=== PATIENT | male | born 1970 | race Caucasian/White ===

== ENCOUNTER 2020-04-21 17:47 | Inpatient (IN) ==
[2020-04-21] MEDS ORDERED: SODIUM CHLORIDE 0.9% 1000ML 2,000 ML IV ONE (17:52)
--- NOTE | 2020-04-21 17:54 | Emergency Department Note ---
Impression & Plan Cholecystitis, Transaminitis, CELESTE (acute kidney injury) ED Provider Note NAME: NICA [id number] LOUISA AGE: 49 SEX: M : 1970 ARRIVES VIA: Ambulance INFORMANT: Patient ED PROVIDER(S): Avelino Jackson DO CHIEF COMPLAINT: hyperkalemia and CELESTE HPI: Patient is a 49-year-old male who presents the ER for nausea. He has no significant past medical history with exception of diabetes and sciatica. He was being treated with steroids recently as well as NSAIDS. He stopped the steroids and NSAIDS as it did upset his stomach. He was nauseated. Because of this they obtain blood work today. Labs showed a potassium 6.2 and a creatinine in the twos which is new for him. He denies any headache or change in vision. No chest pain or shortness of breath. No vomiting diarrhea. Denies any dysuria urgency or frequency. No other exacerbating or remitting factors. ROS: See above HPI for pertinent positives & negatives. A total of 10 systems reviewed and were otherwise negative. PAST MEDICAL HISTORY:See Below PAST SURGICAL HISTORY:See Below FAMILY HISTORY:See Below SOCIAL HISTORY:See Below HOME MEDICATIONS:See Below ALLERGIES:See Below VITALS:See Below PHYSICAL EXAMINATION: GENERAL: Sitting up in bed, alert, well appearing, well nourished, no distress, non-toxic EYE EXAM: normal conjunctiva. OROPHARYNX: no exudate, no erythema, lips, buccal mucosa, and tongue normal and mucous membranes are moist NECK: supple, no nuchal rigidity, no adenopathy, non-tender LUNGS: Clear to auscultation. Normal chest wall mechanics HEART: no murmurs, S1 normal and S2 normal ABDOMEN: abdomen soft, non-tender, normo-active bowel sounds, no masses, no rebound or guarding. UPPER EXTREMITIES: upper extremities are grossly normal. LOWER EXTREMITIES: No pitting edema. NEURO EXAM: Normal sensorium, cranial nerves II-XII grossly intact, normal speech, no gross weakness of arms, no gross weakness of legs. MEDICAL DECISION MAKING: Patient is a 49-year-old male sent in from skilled nursing as he was having an upset stomach and he was found to have acute kidney injury. IV was established blood work was obtained. Labs show no significant leukocytosis or anemia. BMP with a creatinine at 2.5 up from baseline 1.2. LFTs show mild transaminitis. Bili was not elevated. Lipase was elevated at 1200. Covid was negative. CT abdomen pelvis shows cholecystitis. Patient was given Zofran as well as IV Zosyn. Discussed with the hospitalist and Kevyn from general surgery who recommended admission to general hospitalist. Patient was updated bedside. Triage Nursing notes reviewed. Limited review of prior medical records performed Vital Signs: reviewed and remarkable for HTN and tachy Differential diagnosis: Differential diagnoses includes but is not limited to gastritis, peptic ulcer disease, GERD, gallbladder disease, pancreatitis, small bowel obstruction, acute coronary syndrome, pericarditis, ischemic bowel, irritable bowel disease, irritable bowel syndrome, appendicitis, diverticulitis, malignancy, hernia, urinary tract infection, torsion, /ectopic (if female), perforation, trauma, infectious. ER treatment provided: See below Diagnostics interpreted by me: ECG: Sinus tachycardia rate of 116 Normal axis Septal Q waves QTC 439 Cardiac Monitoring: An order was placed for continuous cardiac monitoring. The monitor shows a rate of 108 with sinus rhythm. Laboratory studies: As stated above and show below. Imaging studies: CT abdomen pelvis shows cholecystitis Consultation(s): Discussed with Dr. Tariq Dill for admission Discussed with Kevyn from general surgery who recommended admission to internal medicine. Procedures: none Critical Care: None Past Med/Surg History Social History Feels Safe at Home: Yes Allergies Allergies Allergy/AdvReac Type Severity Reaction Status Date / Time No Known Allergies Allergy Verified 04/21/20 20:03 Home Meds Home Medications Medication Instructions Recorded Confirmed aspirin [Aspirin Low-Strength] 81 mg PO DAILY 04/21/20 04/21/20 carbamazepine 200 mg PO HS 04/21/20 04/21/20 diclofenac sodium 50 mg PO TID 04/21/20 04/21/20 glimepiride 1 mg PO DAILY 04/21/20 04/21/20 lisinopril 20 mg PO DAILY 04/21/20 04/21/20 metformin 1,000 mg PO BID 04/21/20 04/21/20 nortriptyline 25 mg PO HS 04/21/20 04/21/20 Results & Data (ED) Vital Signs Vital Signs - 24 hr 04/21/20 17:58 04/21/20 18:00 04/21/20 18:30 Temperature 36.7 C Temperature Source Oral Pulse Rate 118 H 113 H 108 H Pulse Rate from SpO2 Sensor 114 H 109 H Respiratory Rate 18 21 21 Respiratory Effort / Characteristics Respiratory Depth Normal Respiratory Pattern Blood Pressure 155/83 H 167/90 H 154/94 H Blood Pressure [Left Arm] Blood Pressure Mean 107 115 114 Blood Pressure Mean [Left Arm] Blood Pressure Position [Left Arm] Pulse Oximetry 99 96 98 Oxygen Delivery Method Room Air Room Air Room Air Sepsis Recent Fever Within 48 Hours No Sepsis New/Unexplained Change in Mental Status N/A Sepsis Action Taken by Nursing No Action Required 04/21/20 19:00 04/21/20 19:30 04/21/20 20:00 Temperature Temperature Source Pulse Rate 106 H 104 H 109 H Pulse Rate from SpO2 Sensor 108 H 105 H 110 H Respiratory Rate 23 20 18 Respiratory Effort / Characteristics Non-Labored Respiratory Depth Normal Respiratory Pattern Regular Blood Pressure 150/88 H 168/97 H Blood Pressure [Left Arm] 179/100 H Blood Pressure Mean 108 120 Blood Pressure Mean [Left Arm] 126 Blood Pressure Position [Left Arm] Lying Pulse Oximetry 99 100 99 Oxygen Delivery Method Room Air Sepsis Recent Fever Within 48 Hours Sepsis New/Unexplained Change in Mental Status Sepsis Action Taken by Nursing 04/21/20 22:00 Temperature Temperature Source Pulse Rate Pulse Rate from SpO2 Sensor Respiratory Rate 18 Respiratory Effort / Characteristics Non-Labored Respiratory Depth Normal Respiratory Pattern Regular Blood Pressure Blood Pressure [Left Arm] 156/93 H Blood Pressure Mean Blood Pressure Mean [Left Arm] 114 Blood Pressure Position [Left Arm] Lying Pulse Oximetry 98 Oxygen Delivery Method Room Air Sepsis Recent Fever Within 48 Hours Sepsis New/Unexplained Change in Mental Status Sepsis Action Taken by Nursing Laboratory Data Result diagrams: 04/21/20 18:10 04/21/20 18:10 Lab Results 04/21/20 04/21/20 04/21/20 Range/Units 18:10 18:10 19:30 WBC 8.87 (4.8-10.8) K/uL RBC 4.44 L (4.7-6.1) M/uL Hgb 12.9 L (14.0-18.0) g/dL Hct 38.4 L (42-52) % MCV 86.5 (80-100) fL MCH 29.1 (25-34) pg MCHC 33.6 (32-36) g/dL RDW Std Deviation 43.4 (36.4-46.3) fL RDW Coeff of Rani 13.5 (11.5-14.5) % Plt Count 347 (130-400) K/uL MPV 8.1 (7.4-10.4) fL Immature Gran % (Auto) 1.4 % Neut % (Auto) 75.5 % Lymph % (Auto) 10.6 % Butts % (Auto) 12.4 % Eos % (Auto) 0.0 % Baso % (Auto) 0.1 % Neut # (Auto) 6.70 H (1.4-6.5) K/uL Lymph # (Auto) 0.94 L (1.2-3.4) K/uL Butts # (Auto) 1.10 H (0.11-0.59) K/uL Eos # (Auto) 0.00 (0-0.5) K/uL Baso # (Auto) 0.01 (0-0.2) K/uL Immature Gran # (Auto) 0.12 H (0.00-0.02) K/uL Sodium 134 L (136-145) mmol/L Potassium 4.9 (3.5-5.1) mmol/L Chloride 103 (98-107) mmol/L Carbon Dioxide 23 (21-32) mmol/L Anion Gap 8.0 (3-11) BUN 22 H (7-18) mg/dl Creatinine 2.55 H (0.6-1.4) mg/dl Est Cr Clr Drug Dosing 34.1 ml/min Est GFR ( Amer) 32.7 Est GFR (Non-Af Amer) 28.2 BUN/Creatinine Ratio 8.4 L (10-20) Glucose 124 H (70-99) mg/dl Calcium 10.0 (8.5-10.1) mg/dl Total Bilirubin 0.5 (0.2-1) mg/dl AST 65 H (15-37) U/L ALT 148 H (12-78) U/L Alkaline Phosphatase 207 H (45-117) U/L Troponin I < 0.015 (0-0.045) ng/ml Total Protein 8.1 (6.4-8.2) gm/dl Albumin 4.2 (3.4-5.0) gm/dl Globulin 3.9 (2.5-4.0) gm/dl Albumin/Globulin Ratio 1.1 (0.9-2) Lipase 1163 H (73-393) U/L Specimen Hemolysis COVID-19 Eval Order Covid19 IDNow atMLAC SARS-CoV-2, RNA, NAAT (NEGATIVE) 04/21/20 Range/Units 19:30 WBC (4.8-10.8) K/uL RBC (4.7-6.1) M/uL Hgb (14.0-18.0) g/dL Hct (42-52) % MCV (80-100) fL MCH (25-34) pg MCHC (32-36) g/dL RDW Std Deviation (36.4-46.3) fL RDW Coeff of Rani (11.5-14.5) % Plt Count (130-400) K/uL MPV (7.4-10.4) fL Immature Gran % (Auto) % Neut % (Auto) % Lymph % (Auto) % Butts % (Auto) % Eos % (Auto) % Baso % (Auto) % Neut # (Auto) (1.4-6.5) K/uL Lymph # (Auto) (1.2-3.4) K/uL Butts # (Auto) (0.11-0.59) K/uL Eos # (Auto) (0-0.5) K/uL Baso # (Auto) (0-0.2) K/uL Immature Gran # (Auto) (0.00-0.02) K/uL Sodium (136-145) mmol/L Potassium (3.5-5.1) mmol/L Chloride (98-107) mmol/L Carbon Dioxide (21-32) mmol/L Anion Gap (3-11) BUN (7-18) mg/dl Creatinine (0.6-1.4) mg/dl Est Cr Clr Drug Dosing ml/min Est GFR ( Amer) Est GFR (Non-Af Amer) BUN/Creatinine Ratio (10-20) Glucose (70-99) mg/dl Calcium (8.5-10.1) mg/dl Total Bilirubin (0.2-1) mg/dl AST (15-37) U/L ALT (12-78) U/L Alkaline Phosphatase (45-117) U/L Troponin I (0-0.045) ng/ml Total Protein (6.4-8.2) gm/dl Albumin (3.4-5.0) gm/dl Globulin (2.5-4.0) gm/dl Albumin/Globulin Ratio (0.9-2) Lipase (73-393) U/L Specimen Hemolysis COVID-19 Eval Order SARS-CoV-2, RNA, NAAT NEGATIVE (NEGATIVE) Administered Medications Discontinued Medications Sodium Chloride (Nss 1000ml) 2,000 mls @ 999 mls/hr IV .Q2H1M ONE Stop: 04/21/20 19:52 Last Infusion: 04/21/20 20:01 Dose: 0 mls/hr Documented by: [id number] Admin: 04/21/20 18:16 Dose: 999 mls/hr Documented by: [id number] Sodium Chloride (Nss 1000ml) 1,000 mls @ 999 mls/hr IV .Q1H1M ONE Stop: 04/21/20 19:56 Last Infusion: 04/21/20 22:26 Dose: 0 mls/hr Documented by: [id number] Infusion: 04/21/20 21:12 Dose: 0 mls/hr Documented by: [id number] Admin: 04/21/20 20:04 Dose: 999 mls/hr Documented by: [id number] Piperacillin Sod/Tazobactam Sod (Zosyn) 4.5 gm in 120 mls @ 240 mls/hr IV NOW ONE Stop: 04/21/20 21:58 Last Admin: 04/21/20 21:58 Dose: 240 mls/hr Documented by: [id number] Ondansetron HCl (Ondansetron Inj 2 Mg/Ml 2 Ml Vial) 4 mg IV NOW STA Stop: 04/21/20 18:57 Last Admin: 04/21/20 20:07 Dose: Not Given Documented by: [id number] Discharge Plan Visit Data Chief Complaint: Abnormal Labs/Diagnostic Testing Stated Complaint: ABNORMAL LABS ED Provider: Avelino Jackson Discharge Problem: Cholecystitis, Transaminitis, CELESTE (acute kidney injury) Forms Stand Alone Forms: [facility] [employer] Prescriptions Prescriptions: No Action lisinopril 20 mg Tablet 20 mg PO DAILY RF: 0 aspirin [Aspirin Low-Strength] 81 mg Tablet,Delayed Release (Dr/Ec) 81 mg PO DAILY RF: 0 glimepiride 1 mg Tablet 1 mg PO DAILY RF: 0 nortriptyline 25 mg Capsule 25 mg PO HS RF: 0 carbamazepine 200 mg Tablet 200 mg PO HS RF: 0 metformin 1,000 mg Tablet 1,000 mg PO BID RF: 0 diclofenac sodium 50 mg Tablet,Delayed Release (Dr/Ec) 50 mg PO TID RF: 0 Referrals Referrals: Polo TRAVIS [Primary Care Provider] -
[2020-04-21 18:22] LABS: Basophils # (auto) 0.01 K/uL (0-0.2); Basophils % (auto) 0.1 %; Hematocrit (blood only) 38.4 % (42-52); Hemoglobin 12.9 g/dL (14.0-18.0); Immature Granulocytes # (auto) 0.12 K/uL (0.00-0.02); Immature Granulocytes % (auto) 1.4 %; Lymphocytes # (auto) 0.94 K/uL (1.2-3.4); Lymphocytes % (auto) 10.6 %; Mean Corpuscular Hemoglobin 29.1 pg (25-34); Mean Corpuscular Hgb Conc 33.6 g/dL (32-36); Mean Corpuscular Volume 86.5 fL (80-100); Mean Platelet Volume 8.1 fL (7.4-10.4); Monocytes % (auto) 12.4 %; Neutrophils % (auto) 75.5 %; Platelet Count 347 K/uL (130-400); RDW Coefficient of Variation 13.5 % (11.5-14.5); RDW Standard Deviation 43.4 fL (36.4-46.3); Red Blood Count 4.44 M/uL (4.7-6.1); White Blood Count 8.87 K/uL (4.8-10.8)
--- NOTE | 2020-04-21 18:50 | XRay Report ---
SINGLE VIEW CHEST CLINICAL HISTORY: Atypical chest pain. FINDINGS: An AP, portable, upright chest radiograph is obtained. No prior studies are available for c omparison at the time of dictation. The cardiomediastinal silhouette is unremarkable. The lungs and pleural spaces are clear. No pneumothorax is seen. The bony thorax is grossly intact. IMPRESSION: No active disease in the chest. ACT 112: Negative or not required by law. Electronically signed by: Mark Milton M.D. 04/21/2020 6:49 PM
[2020-04-21 18:54] LABS: Alanine Aminotransferase 148 U/L (12-78); Albumin Globulin Ratio 1.1 (0.9-2); Albumin Level 4.2 gm/dl (3.4-5.0); Alkaline Phosphatase 207 U/L (45-117); Aspartate Aminotransferase 65 U/L (15-37); BUN Creatinine Ratio 8.4 (10-20); Bilirubin,Total 0.5 mg/dl (0.2-1); Blood Urea Nitrogen 22 mg/dl (7-18); Carbon Dioxide 23 mmol/L (21-32); Chloride 103 mmol/L (98-107); Creatinine Clr Calc Pharmacy 34.1 ml/min; Est GFR (African American) 32.7; Est GFR (Non-African American) 28.2; Globulin 3.9 gm/dl (2.5-4.0); Glucose 124 mg/dl (70-99); Lipase 1163 U/L (73-393); Potassium 4.9 mmol/L (3.5-5.1); Sodium 134 mmol/L (136-145); Total Protein 8.1 gm/dl (6.4-8.2); Troponin I < 0.015 ng/ml (0-0.045)
[2020-04-21] MEDS ORDERED: SODIUM CHLORIDE 0.9% 1000ML 1,000 ML IV ONE (18:56)
[2020-04-21] MEDS ORDERED: ONDANSETRON INJ 2 MG/ML 2 ML VIAL IV STA (18:56)
--- NOTE | 2020-04-21 20:40 | CT Scan Report ---
CT SCAN OF THE ABDOMEN AND PELVIS WITHOUT IV CONTRAST CLINICAL HISTORY: Generalized abdominal pain. COMPARISON STUDY: No priors. TECHNIQUE: CT scan of the abdomen and pelvis is performed from the lung bases to the proximal femora. Images are reviewed in the axial, sagittal, and coronal planes. IV contrast was not administered for this examination. Note that the examination was performed in significantly suboptimal fashion withou t oral and IV contrast. A dose lowering technique was utilized adhering to the principles of ALARA. CT DOSE: 798.25 mGy.cm FINDINGS: Lung bases: The heart is normal in size and without pericardial effusion. The lung bases are clear. T here is a tiny hiatal hernia. Liver: The unenhanced liver is enlarged, measuring 20.6 cm in length. The liver is otherwise normal i n contour and attenuation. There is no intrahepatic biliary ductal dilatation. Gallbladder: The gallbladder is partially decompressed. The gallbladder wall appears thickened and th ere is pericholecystic inflammation. Spleen: Normal in size and attenuation. Pancreas: The unenhanced pancreas is grossly unremarkable. Adrenal glands: Unremarkable. Kidneys: The unenhanced kidneys are normal in size and without hydronephrosis. There are no renal lisa culi identified. There is no evidence of contour deforming renal mass lesion. Abdominal vasculature: The abdominal aorta is normal in course and caliber. Bowel: There is no bowel obstruction. The appendix is well-visualized and normal. Peritoneum: There is no intraperitoneal free air or abdominal ascites. There is a small fat-containin g umbilical hernia. Lymphadenopathy: None. Pelvic viscera: The bladder is distended but otherwise normal in appearance. The prostate and seminal vesicles are normal as visualized. Skeletal structures: No lytic or blastic lesions are seen. IMPRESSION: 1. Abnormal appearing gallbladder with findings concerning for acute cholecystitis. Correlate with cl inical and laboratory findings. Consider right upper quadrant ultrasound for further assessment. 2. Hepatomegaly. 3. Additional findings as above. ACT 112: Negative or not required by law. Electronically signed by: Mark Milton M.D. 04/21/2020 8:39 PM
[2020-04-21] MEDS ORDERED: PIPERACILLIN/TAZOBACTAM 4.5 GM/120 ML BAG IV ONE (21:29)
[2020-04-21] MEDS ORDERED: PIPERACILL/TAZOBAC CONSULT ACTIVE PRN ×2 (21:29→23:31)
[2020-04-21] MEDS ORDERED: HYDROmorphone INJ 0.5 MG/0.5 ML SYR IV PRN (21:59)
--- NOTE | 2020-04-21 22:22 | Surgery Consultation ---
Date of Consultation April 21, 2020 Assessment & Plan (1) Cholecystitis: Patient is being admitted to the hospital on the medical service. I discussed the case with them and the following interventions are in place: Serial labs will be followed The hospital service is planning on obtaining an MRCP Recommend keeping the patient n.p.o. and hydrating with IV fluids secondary to his pancreatitis We will await the results of his MRCP. Be preferable to allow his lipase is normalized and have improvement of his renal function prior to entertaining any surgical intervention. Provide analgesics as needed Provide antiemetics as needed Continue antibiotics. He has received Zosyn in the emergency department Patient appears to have acute kidney injury I suspect this is likely due to his NSAID use. We will avoid nephrotoxins and hydrate him with IV fluids again follow serial labs Dr. Miller-patient seen in his roomawake alert appears to be normal. Very good urine output No complaint of abdominal pain. No tenderness in the right upper quadrant. Patient CT scan does show thickened contracted gallbladder-lipase is elevated as well as his LFTs with a normal total bilirubin There could be an element of gallstone pancreatitis-we will monitor his progress and likely proceed with laparoscopic cholecystectomy in the next 24 to 48 hours if he stabilizes. History of Present Illness Reason for Consultation: Cholecystitis History of Present Illness This is a 49-year-old male who is currently incarcerated who presented to [facility] emergency department secondary to nausea. The patient has a history of sciatica along with diabetes and LIU and was recently treated with NSAIDs along with steroids due to his sciatica. He has had approximately 5 days worth of nausea so he had labs checked which were abnormal prompting his presentation to the emergency department for further evaluation. Patient denies any abdominal pain but did report nausea with occasional dry heaves. He denies any fevers, shakes, or chills. He does not report any recent weight loss. He denies any change in his bowel habits. I did question him about his urine and he notes that his urine is discolored and has the color of soda. He notes that for his sciatica he was been taking Celebrex in the past and has also Rickett recently taken diclofenac as well as Voltaren. In the emergency department the patient did have labs were CBC revealed his white blood cell count and platelet count were within normal range. His hemoglobin and hematocrit were 12.9 and 38.4. Chemistry profile showed his sodium was 134. Potassium was within normal range. His BUN and creatinine were elevated at 22 and 2.5. LFTs showed that his bilirubin was within the normal r mark anthony. His AST and ALT were elevated at 65 and 148. Alkaline phosphatase is elevated at 207. In addition his lipase was elevated at 1163. A Covid test was performed and was noted to be negative. Chest x-ray showed no evidence of pneumonia or CHF. CT scan of the abdomen showed that patient is gallbladder had pericholecystic inflammation with a thickened gallbladder wall concerning for cholecystitis. Patient notes when he is feeling well he is fairly active and he is able to walk without any chest pain or shortness of breath. He is a non-smoker. At the time of my interview he was resting comfortably in bed with no pain and in no distress. Allergies Allergy/AdvReac Type Severity Reaction Status Date / Time No Known Allergies Allergy Verified 04/21/20 20:03 Home Medications Medication Instructions Recorded Confirmed Type aspirin [Aspirin Low-Strength] 81 mg PO DAILY 04/21/20 04/21/20 History carbamazepine 200 mg PO HS 04/21/20 04/21/20 History diclofenac sodium 50 mg PO TID 04/21/20 04/21/20 History glimepiride 1 mg PO DAILY 04/21/20 04/21/20 History lisinopril 20 mg PO DAILY 04/21/20 04/21/20 History metformin 1,000 mg PO BID 04/21/20 04/21/20 History nortriptyline 25 mg PO HS 04/21/20 04/21/20 History Patient History Social History Smoking Status: Never smoker Hx Alcohol Use: Yes Alcohol type: beer Hx Substance Use: No Preferred Language: Belgian Communication Ability: Effective Signal Wirer Required: No Beliefs That Will Affect Care: None Current Living Situation: Other Current Living Situation Comment: [facility] Facility Other Information That Helps Us Care for You: No Feels Safe at Home: Yes Safety Concerns: Feels Safe At This Time Assistive Devices: Glasses Review of Systems Constitutional: no fever, no chills and no weight loss Eyes: no diplopia Ear, Nose, Mouth, Throat: no ear pain Respiratory: no cough Cardiovascular: no chest pain Gastrointestinal: + nausea and + vomiting (Intermittent dry heaves); no abdominal pain Genitourinary: no dysuria Musculoskeletal: + back pain (Related to his sciatica) Integumentary: no rash Neurologic: no localized weakness Physical Exam Constitutional: well developed and well nourished; no acute distress Eyes: no conjunctival abnormality ENMT: Ears: no hearing impairment Neck: trachea midline Respiratory: normal respiratory effort, lungs clear to auscultation Cardiovascular: Rate/Rhythm: regular rate and regular rhythm Gastrointestinal (Abdomen): Abdomen is soft and nondistended. Bowel sounds are present. There is no rebound tenderness or guarding. There is no pain with palpation. Skin: no rashes, warm and dry Neurologic: moves all extremities Psychiatric: A+Ox3, euthymic affect Results & Data ([facility]) Vital Signs (Past 12 Hours) Vital Signs Temp Pulse Resp BP BP Pulse Ox 04/21/20 22:00 18 156/93 H 98 04/21/20 20:00 109 H 18 179/100 H 99 04/21/20 19:30 104 H 20 168/97 H 100 04/21/20 19:00 106 H 23 150/88 H 99 04/21/20 18:30 108 H 21 154/94 H 98 04/21/20 18:00 113 H 21 167/90 H 96 04/21/20 17:58 36.7 C 118 H 18 155/83 H 99 PG Care Time/CCT Total # of Minutes Spent Total Time Spent with Patient: Total time spent is greater than 50% in coordination of care (as documented) at patient's floor/unit and/or counseling patient: Coding Level of Care Code 82220 Inpt Consult Level 5 Diagnoses Cholecystitis K81.9
[2020-04-21] MEDS ORDERED: CARBOHYDRATES FOR HYPOGLYCEMIA PO PRN (23:31)
[2020-04-21] MEDS ORDERED: DEXTROSE 50% 50 ML SYRINGE IV PRN (23:31)
[2020-04-21] MEDS ORDERED: GLUCOSE 10 TABS/TUBE PO PRN (23:31)
[2020-04-21] MEDS ORDERED: GLUCOSE 40% GEL 15 GM TUBE PO PRN (23:31)
[2020-04-21] MEDS ORDERED: GLUCAGON FOR INJ 1 MG VIAL SQ PRN (23:31)
[2020-04-21] MEDS ORDERED: PHARMACY GLYCEMIC MGMT CONSULT PRN (23:42)
[2020-04-21] MEDS: LACTATED RINGER'S 1,000 ML IV SCH (23:42)
[2020-04-22] MEDS: INSULIN ASPART 100 UNITS/ML 3 ML PEN SC SCH ×4 (00:56→17:40)
[2020-04-22] MEDS: PIPERACILLIN/TAZOBACTAM 3.375 GM in DEXTROSE 5% 100 ML IV SCH ×3 (01:30→17:07)
--- NOTE | 2020-04-22 04:27 | History & Physical Report ---
Date of Service April 22, 2020 Patient was seen and examined on April 21, 2020 Assessment & Plan (1) Cholecystitis: Acute cholecystitis/pancreatitis/transaminitis- Presumptive gallstone pancreatitis NPO except essential medications LR at 150 mils per hour Zosyn 3.375 g IV every 8 hours Zofran 4 mg IV every 6 hours as needed Famotidine 20 mg IV every 12 hours Order MRCP Seen by surgery in the ED. If MRCP abnormal, will need ERCP. Present on Admission?: Yes (2) Pancreatitis: See above Follow serial lipase Present on Admission?: Yes (3) Transaminitis: See above follow serial chemistry panels Present on Admission?: Yes (4) Renal insufficiency: Renal insufficiency- Unknown baseline with creatinine on the patient 2.55. Hold lisinopril IV fluids as noted above Repeat laboratories in a.m. Present on Admission?: Yes (5) Diabetes mellitus: Hold glimepiride Hold Metformin, and do not resume unless GFR is improved Placed on Accu-Cheks before meals and at bedtime/every 6 hours with NovoLog coverage per scale Present on Admission?: Yes Admission and Anticipated Discharge Date Admission Date: April 21, 2020 History of Present Illness Chief Complaint: The patient presents to the emergency department from [facility] with complaint of nausea over the past few days, following treatment with steroids and NSAIDs for sciatica Primary Care Provider: [facility] The patient is a 49-year-old male with a past medical history including diabetes mellitus, hypertension, and sciatica who presents with nausea for the past few days, following treatment with steroids and NSAIDs for sciatica. Allergies Allergy/AdvReac Type Severity Reaction Status Date / Time No Known Allergies Allergy Verified 04/21/20 20:03 Home Medications Medication Instructions Recorded Confirmed Type aspirin [Aspirin Low-Strength] 81 mg PO DAILY 04/21/20 04/21/20 History carbamazepine 200 mg PO HS 04/21/20 04/21/20 History diclofenac sodium 50 mg PO TID 04/21/20 04/21/20 History glimepiride 1 mg PO DAILY 04/21/20 04/21/20 History lisinopril 20 mg PO DAILY 04/21/20 04/21/20 History metformin 1,000 mg PO BID 04/21/20 04/21/20 History nortriptyline 25 mg PO HS 04/21/20 04/21/20 History Past Med/Surg History Social History Smoking Status: Never smoker Hx Alcohol Use: Yes Alcohol type: beer Hx Substance Use: No Preferred Language: Georgian Communication Ability: Effective Die Maker Required: No Beliefs That Will Affect Care: None Current Living Situation: Other Current Living Situation Comment: [facility] Other Information That Helps Us Care for You: No Feels Safe at Home: Yes Safety Concerns: Feels Safe At This Time Assistive Devices: Glasses Review of Systems Review of Systems: The patient denies chest pain, palpitations, shortness of breath, dyspnea on exertion, cough, lower extremity swelling, sore throat, fevers, chills, sweats, vomiting, diarrhea , constipation, abdominal pain, pelvic pain, blood in urine or stool, dysuria, urinary frequency or urgency, lightheadedness, dizziness, headache, memory loss, loss of consciousness, rash, abnormal bruising or bleeding, imbalance, focal or generalized weakness, numbness or tingling in arms or legs, generalized arthralgias or myalgias, back or neck pain, or night sweats. The review of systems is otherwise negative other than for that already noted above, and at least 10 systems have been reviewed. Physical Exam Physical Exam: The patient is awake, alert and oriented 3, well developed and well nourished, normocephalic and atraumatic, lying in bed and in no acute distress. HEENT--PERRL, EOMI, mucous membranes and oropharynx dry. Neck--supple. No JVD. No bruits. Thyroid normal, trachea midline, no adenopathy. Heart--normal S1 and S2. No murmurs, rubs or gallops. Lungs--clear bilaterally, no respiratory distress, no accessory muscle use. Abdomen--normal bowel sounds and soft. Nontender. Nondistended, no hernias or masses, no organomegaly. Extremities--no cyanosis or clubbing. No edema. Dermatologic--normal skin turgor, normal color, no abnormal lymph nodes, no rash. Neurologic--cranial nerves II through XII grossly intact. Rheumatologic--normal range of motion. Psychiatric--normal affect. Results & Data Results & Data ([facility]) Vital Signs (Past 12 Hours) Vital Signs Temp Pulse Pulse Resp BP BP Pulse Ox 04/22/20 01:29 95 H 116/86 04/22/20 00:20 105 H 142/89 H 04/21/20 23:45 98.6 F 104 H 16 152/92 H 97 04/21/20 22:30 108 H 17 141/86 H 95 04/21/20 22:05 109 H 23 156/93 H 97 04/21/20 22:04 98 04/21/20 22:00 18 156/93 H 98 04/21/20 20:00 109 H 18 179/100 H 99 04/21/20 19:30 104 H 20 168/97 H 100 04/21/20 19:00 106 H 23 150/88 H 99 04/21/20 18:30 108 H 21 154/94 H 98 04/21/20 18:00 113 H 21 167/90 H 96 04/21/20 17:58 98.1 F 118 H 18 155/83 H 99 Laboratory Results Laboratory Results WBC 8.87 K/uL (4.8-10.8) 04/21/20 18:10 RBC 4.44 M/uL (4.7-6.1) L 04/21/20 18:10 Hgb 12.9 g/dL (14.0-18.0) L 04/21/20 18:10 Hct 38.4 % (42-52) L 04/21/20 18:10 MCV 86.5 fL (80-100) 04/21/20 18:10 MCH 29.1 pg (25-34) 04/21/20 18:10 MCHC 33.6 g/dL (32-36) 04/21/20 18:10 RDW Std Deviation 43.4 fL (36.4-46.3) 04/21/20 18:10 RDW Coeff of Rani 13.5 % (11.5-14.5) 04/21/20 18:10 Plt Count 347 K/uL (130-400) 04/21/20 18:10 MPV 8.1 fL (7.4-10.4) 04/21/20 18:10 Immature Gran % (Auto) 1.4 % 04/21/20 18:10 Neut % (Auto) 75.5 % 04/21/20 18:10 Lymph % (Auto) 10.6 % 04/21/20 18:10 Conway % (Auto) 12.4 % 04/21/20 18:10 Eos % (Auto) 0.0 % 04/21/20 18:10 Baso % (Auto) 0.1 % 04/21/20 18:10 Neut # (Auto) 6.70 K/uL (1.4-6.5) H 04/21/20 18:10 Lymph # (Auto) 0.94 K/uL (1.2-3.4) L 04/21/20 18:10 Conway # (Auto) 1.10 K/uL (0.11-0.59) H 04/21/20 18:10 Eos # (Auto) 0.00 K/uL (0-0.5) 04/21/20 18:10 Baso # (Auto) 0.01 K/uL (0-0.2) 04/21/20 18:10 Immature Gran # (Auto) 0.12 K/uL (0.00-0.02) H 04/21/20 18:10 Sodium 134 mmol/L (136-145) L 04/21/20 18:10 Potassium 4.9 mmol/L (3.5-5.1) 04/21/20 18:10 Chloride 103 mmol/L (98-107) 04/21/20 18:10 Carbon Dioxide 23 mmol/L (21-32) 04/21/20 18:10 Anion Gap 8.0 (3-11) 04/21/20 18:10 BUN 22 mg/dl (7-18) H 04/21/20 18:10 Creatinine 2.55 mg/dl (0.6-1.4) H 04/21/20 18:10 Est Cr Clr Drug Dosing 34.1 ml/min 04/21/20 18:10 Est GFR ( Amer) 32.7 04/21/20 18:10 Est GFR (Non-Af Amer) 28.2 04/21/20 18:10 BUN/Creatinine Ratio 8.4 (10-20) L 04/21/20 18:10 Glucose 124 mg/dl (70-99) H 04/21/20 18:10 POC Glucose 105 mg/dl (70-99) H 04/21/20 23:35 Calcium 10.0 mg/dl (8.5-10.1) 04/21/20 18:10 Total Bilirubin 0.5 mg/dl (0.2-1) 04/21/20 18:10 AST 65 U/L (15-37) H 04/21/20 18:10 ALT 148 U/L (12-78) H 04/21/20 18:10 Alkaline Phosphatase 207 U/L (45-117) H 04/21/20 18:10 Troponin I < 0.015 ng/ml (0-0.045) 04/21/20 18:10 Total Protein 8.1 gm/dl (6.4-8.2) 04/21/20 18:10 Albumin 4.2 gm/dl (3.4-5.0) 04/21/20 18:10 Globulin 3.9 gm/dl (2.5-4.0) 04/21/20 18:10 Albumin/Globulin Ratio 1.1 (0.9-2) 04/21/20 18:10 Lipase 1163 U/L (73-393) H 04/21/20 18:10 Specimen Hemolysis 04/21/20 18:10 COVID-19 Eval Order Covid19 [facility] 04/21/20 19:30 SARS-CoV-2, RNA, NAAT NEGATIVE (NEGATIVE) 04/21/20 19:30 Diagnostic Findings [facility], [phone] XRay Report Patient: NICA JASSO [id number] Date: 04/21/20MR#: [id number]: [address] [place] [address] DRAcct ID:[id number]: Date: 1970[facility] Zip: [place], [place] [address]Jlb: 49Location: EDSex: MRoom/Bed:Att Phy:Diagnosis: ABNORMAL LABSPri Phy: SCI BennerService Date: 04/21/20Fa Phy:Interpreting Phy: Mark Milton MDAdmit Phy: Ordering Phy: Avelino Jackson DO cc: ~ SINGLE VIEW CHEST CLINICAL HISTORY: Atypical chest pain. FINDINGS: An AP, portable, upright chest radiograph is obtained. No prior studies are available for comparison at the time of dictation. The cardiomediastinal silhouette is unremarkable. The lungs and pleural spaces are clear. No pneumothorax is seen. The bony thorax is grossly intact. IMPRESSION: No active disease in the chest. ACT 112: Negative or not required by law. Electronically signed by: Mark Milton M.D. 04/21/2020 6:49 PM Dictated: 04/21/201848Transcribed: 04/21/201848 [facility], [phone] CT Scan Report Patient: NICA JASSO [id number] Date: 04/21/20MR#: [id number]: [facility] DRAcct ID:[id number]: Date: 1970[facility] Zip: [place] [id number]: 49Location: EDSex: MRoom/Bed:Att Phy:Diagnosis: ABNORMAL LABSPri Phy: SCI BennerService Date: 04/21/20Fa Phy:Interpreting Phy: Mark Milton MDAdmit Phy: Ordering Phy: Avelino Jackson, cc: ~ CT SCAN OF THE ABDOMEN AND PELVIS WITHOUT IV CONTRAST CLINICAL HISTORY: Generalized abdominal pain. COMPARISON STUDY: No priors. TECHNIQUE: CT scan of the abdomen and pelvis is performed from the lung bases to the proximal femora. Images are reviewed in the axial, sagittal, and coronal planes. IV contrast was not administered for this examination. Note that the examination was performed in significantly suboptimal fashion without oral and IV contrast. A dose lowering technique was utilized adhering to the principles of ALARA. CT DOSE: 798.25 mGy.cm FINDINGS: Lung bases: The heart is normal in size and without pericardial effusion. The lung bases are clear. There is a tiny hiatal hernia. Liver: The unenhanced liver is enlarged, measuring 20.6 cm in length. The liver is otherwise normal in contour and attenuation. There is no intrahepatic biliary ductal dilatation. Gallbladder: The gallbladder is partially decompressed. The gallbladder wall appears thickened and there is pericholecystic inflammation. Spleen: Normal in size and attenuation. Pancreas: The unenhanced pancreas is grossly unremarkable. Adrenal glands: Unremarkable. Kidneys: The unenhanced kidneys are normal in size and without hydronephrosis. There are no renal calculi identified. There is no evidence of contour deforming renal mass lesion. Abdominal vasculature: The abdominal aorta is normal in course and caliber. Bowel: There is no bowel obstruction. The appendix is well-visualized and normal. Peritoneum: There is no intraperitoneal free air or abdominal ascites. There is a small fat-containing umbilical hernia. Lymphadenopathy: None. Pelvic viscera: The bladder is distended but otherwise normal in appearance. The prostate and seminal vesicles are normal as visualized. Skeletal structures: No lytic or blastic lesions are seen. IMPRESSION: 1. Abnormal appearing gallbladder with findings concerning for acute cholecystitis. Correlate with clinical and laboratory findings. Consider right upper quadrant ultrasound for further assessment. 2. Hepatomegaly. 3. Additional findings as above. ACT 112: Negative or not required by law. Electronically signed by: Mark Milton M.D. 04/21/2020 8:39 PM Dictated: 04/21/202032Transcribed: 04/21/202032 Code Status & VTE Plan Code Status Full code VTE Prophylaxis Plan VTE Prophylaxis will be ordered: Yes PG Care Time/CCT Total # of Minutes Spent Total Time Spent with Patient: Total time spent is greater than 50% in coordination of care (as documented) at patient's floor/unit and/or counseling patient: Coding Level of Care Code 45114 Initial Inpt Care Lvl 3 Diagnoses Cholecystitis K81.9 Pancreatitis K85.90 Transaminitis R74.01 Renal insufficiency N28.9 Diabetes mellitus E11.9
[2020-04-22] MEDS: FAMOTIDINE 20 MG in SYRINGE 3 ML IV SCH ×2 (06:03→20:22)
[2020-04-22 06:30] LABS: Hematocrit (blood only) 34.7 % (42-52); Hemoglobin 11.7 g/dL (14.0-18.0); Immature Granulocytes # (auto) 0.13 K/uL (0.00-0.02); Immature Granulocytes % (auto) 1.5 %; Lymphocytes # (auto) 1.12 K/uL (1.2-3.4); Lymphocytes % (auto) 12.8 %; Mean Corpuscular Hemoglobin 29.3 pg (25-34); Mean Corpuscular Hgb Conc 33.7 g/dL (32-36); Monocytes # (auto) 1.23 K/uL (0.11-0.59); Monocytes % (auto) 14.1 %; Neutrophils # (auto) 6.25 K/uL (1.4-6.5); Neutrophils % (auto) 71.6 %; Platelet Count 306 K/uL (130-400); RDW Coefficient of Variation 13.3 % (11.5-14.5); RDW Standard Deviation 42.6 fL (36.4-46.3); Red Blood Count 3.99 M/uL (4.7-6.1); White Blood Count 8.73 K/uL (4.8-10.8)
[2020-04-22 07:03] LABS: BUN Creatinine Ratio 8.2 (10-20); Calcium 9.5 mg/dl (8.5-10.1); Creatinine Clr Calc Pharmacy 37.4 ml/min; Est GFR (African American) 37.2; Est GFR (Non-African American) 32.1; Magnesium 2.1 mg/dl (1.8-2.4); Potassium 4.9 mmol/L (3.5-5.1)
[2020-04-22 08:46] LABS: Albumin Level 3.6 gm/dl (3.4-5.0); Bilirubin Direct 0.1 mg/dl (0-0.2); Bilirubin,Total 0.5 mg/dl (0.2-1); Total Protein 7.1 gm/dl (6.4-8.2)
[2020-04-22] MEDS ORDERED: lisinopril 20 MG TAB PO SCH (09:00)
--- NOTE | 2020-04-22 09:05 | Pharmacy Report ---
Pharmacy Glycemic Short Note 2 - Date of Service April 22, 2020 - Glycemic Short BSG Results (Last 24 hours): 04/21/20 04/21/20 04/22/20 18:10 23:35 05:54 Glucose 124 H POC Glucose 105 H 119 H 04/22/20 06:08 Glucose 124 H POC Glucose OUTPATIENT ANTIDIABETIC REGIMEN: * metformin 1 gm PO BID * Amaryl 1 mg daily ASSESSMENT: * Patient admitted with gallstones and currently NPO. T2DM on two oral medications with unknown control. HbA1C ordered. * Start Novolog weight-based stress 2. * Lantus scale for this evening if BSGs trend upwards. PLAN FOR INPATIENT GLYCEMIC CONTROL: * Hold outpatient oral diabetes medications * Basal insulin * Lantus 0-15 units SQ HS * Lantus 0 units if BSG < 160 mg/dL * Lantus 10 units if BSG 160-200 mg/dL * Lantus 15 units if BSG > 200 mg/dL * Bolus insulin * NovoLog per scale ACHS or Q6hrs while NPO * Goal Range: Low 110 mg/dL - High 140 mg/dL * Correction Factor: 30 mg/dL/unit * Nutritional / Prandial insulin per carb ratio of 1 unit per 9 grams CHO consumed PLAN FOR DISCHARGE: * TBD
--- NOTE | 2020-04-22 09:06 | Hospitalist Progress Note ---
Date of Service April 22, 2020 Assessment & Plan (1) Cholecystitis: * Acute cholecystitis/pancreatitis/transaminitis- concerning for gallstone pancreatitis * CT with abnormal appearing GB. * MRCP normal without GB thickening seen on CT * General surgery consulted -- prefer to wait 24hours to normalize lipase but ok with clear diet for today * Clear liquid diet ordered * NPO after midnight * Continue LR @ 150cc/hr * Continue Zosyn * Lipase 1163 on admission, repeat 944 -- no pain, just nausea this AM * Antiemetics, pain control * Continue famotidine 20mg IV BID * AVOID NSAIDs -- had been taking meloxicam, diclofenac, and ibuprofen prior to admission * Triglycerides slightly elevated at 178 -- will discuss w patient prior to d/c about starting lowering agent * LFTs remain elevated however are trending down (normal Tbili) -- AST 47, ALT 125, alk phos 163 * Labs in AM (2) Pancreatitis: * See above * Lipase trending down (3) Transaminitis: * See above * follow serial chemistry panels as above (4) Renal insufficiency: * Renal insufficiency- Unknown baseline with creatinine on the patient 2.55. * Holding lisinopril * IV fluids as noted above * Patient had been taking meloxicam, diclofenac, and ibuprofen prior to admission * Cr still elevated but improved to 2.29 * Avoid nephrotoxic medications, renally dose medications when able * BMP in AM (5) Diabetes mellitus: * Hold glimepiride * Hold Metformin, and do not resume unless GFR is improved * Placed on Accu-Cheks before meals and at bedtime/every 6 hours with NovoLog coverage per scale DVT Prophylaxis SCDs Chemoproph held for OR in AM Dispo: NPO after midnight for poncho with Dr. Miller Admission and Anticipated Discharge Date Admission Date: April 21, 2020 Subjective Patient evaluated this afternoon. No pain. Some nausea. Controlled currently. Some pain to lower left pain typically of MSK origin as reproducible on palpation. Hx sciatica. Will order lidocaine patch. Discussed MRCP without stone/need for urgent intervention and that general surg darell hopeful to wait 24-48 hours prior to intervention. Denies drinking. Discussed NSAID use. Hx sciatica and had been using diclofenac after previously taking meloxicam but was never told to stop the meloxicam. Then was utilizing ibuprofen in between those as needed for increased discomfort. Discussed abstaining from NSAIDs at this time. Has not moved bowels in 3 days. Passing gas. Open to suppository. Questions/concerns addressed. No fever, chills, chest pain, abdominal pain, dysuria at this time. Review of Systems Review of Systems: All systems reviewed & are unremarkable except as noted in HPI & below Physical Exam Constitutional: WD/WN, vitals as above + obese, cooperative and comfortable; no acute distress two gaurds at bedside, shackles to bed Eyes: + anicteric sclerae and PERRL ENMT: Ears: no hearing impairment Neck: normal visual inspection and trachea midline Respiratory: normal respiratory effort, lungs clear to auscultation Cardiovascular: RRR, no murmur, no edema Gastrointestinal (Abdomen): normal bowel sounds, soft, nontender, no hepatosplenomegaly Musculoskeletal: no cyanosis or clubbing, extremities motor strength 5/5 tenderness to palpation L low back, reproducible on palpation Skin: no rashes, warm and dry Neurologic: PERRL, EOMI, accommodation nl, no face palsy, no dysarthria Psychiatric: Orientation: alert and oriented x 3 Results & Data Results & Data ([facility]) Vital Signs (Past 12 Hours) Vital Signs Temp Pulse Pulse Resp BP BP Pulse Ox 04/22/20 07:51 36.8 C 81 17 144/84 H 98 04/22/20 06:13 96 H 130/84 04/22/20 05:31 36.9 C 99 H 16 161/93 H 99 04/22/20 01:29 95 H 116/86 04/22/20 00:20 105 H 142/89 H 04/21/20 23:45 37.0 C 104 H 16 152/92 H 97 04/21/20 22:30 108 H 17 141/86 H 95 04/21/20 22:05 109 H 23 156/93 H 97 04/21/20 22:04 98 04/21/20 22:00 18 156/93 H 98 Laboratory Results 04/22/20 04/22/20 04/22/20 Range/Units 06:08 06:08 06:08 WBC (4.8-10.8) K/uL RBC (4.7-6.1) M/uL Hgb (14.0-18.0) g/dL Hct (42-52) % MCV (80-100) fL MCH (25-34) pg MCHC (32-36) g/dL RDW Std Deviation (36.4-46.3) fL RDW Coeff of Rani (11.5-14.5) % Plt Count (130-400) K/uL MPV (7.4-10.4) fL Immature Gran % (Auto) % Neut % (Auto) % Lymph % (Auto) % [place] % (Auto) % Eos % (Auto) % Baso % (Auto) % Neut # (Auto) (1.4-6.5) K/uL Lymph # (Auto) (1.2-3.4) K/uL [place] # (Auto) (0.11-0.59) K/uL Eos # (Auto) (0-0.5) K/uL Baso # (Auto) (0-0.2) K/uL Immature Gran # (Auto) (0.00-0.02) K/uL Sodium 139 (136-145) mmol/L Potassium 4.9 (3.5-5.1) mmol/L Chloride 108 H (98-107) mmol/L Carbon Dioxide 24 (21-32) mmol/L Anion Gap 7.0 (3-11) BUN 19 H (7-18) mg/dl Creatinine 2.29 H (0.6-1.4) mg/dl Est Cr Clr Drug Dosing 37.4 ml/min Est GFR ( Amer) 37.2 Est GFR (Non-Af Amer) 32.1 BUN/Creatinine Ratio 8.2 L (10-20) Glucose 124 H (70-99) mg/dl POC Glucose (70-99) mg/dl Calcium 9.5 (8.5-10.1) mg/dl Ionized Calcium 1.20 (1.12-1.32) mmol/L Magnesium 2.1 (1.8-2.4) mg/dl Total Bilirubin 0.5 (0.2-1) mg/dl Direct Bilirubin 0.1 (0-0.2) mg/dl AST 47 H (15-37) U/L ALT 125 H (12-78) U/L Alkaline Phosphatase 163 H (45-117) U/L Troponin I (0-0.045) ng/ml Total Protein 7.1 (6.4-8.2) gm/dl Albumin 3.6 (3.4-5.0) gm/dl Globulin (2.5-4.0) gm/dl Albumin/Globulin Ratio (0.9-2) Triglycerides 178 H (0-150) mg/dl Cholesterol 191 (0-200) mg/dl LDL Cholesterol, Calc 109 mg/dl VLDL Cholesterol, Calc 36 mg/dl HDL Cholesterol 46 mg/dl Cholesterol/HDL Ratio 4 Lipase 944 H (73-393) U/L Specimen Hemolysis COVID-19 Eval Order SARS-CoV-2, RNA, NAAT (NEGATIVE) 04/22/20 04/22/20 04/21/20 Range/Units 06:08 05:54 23:35 WBC 8.73 (4.8-10.8) K/uL RBC 3.99 L (4.7-6.1) M/uL Hgb 11.7 L (14.0-18.0) g/dL Hct 34.7 L (42-52) % MCV 87.0 (80-100) fL MCH 29.3 (25-34) pg MCHC 33.7 (32-36) g/dL RDW Std Deviation 42.6 (36.4-46.3) fL RDW Coeff of Rani 13.3 (11.5-14.5) % Plt Count 306 (130-400) K/uL MPV 8.0 (7.4-10.4) fL Immature Gran % (Auto) 1.5 % Neut % (Auto) 71.6 % Lymph % (Auto) 12.8 % [place] % (Auto) 14.1 % Eos % (Auto) 0.0 % Baso % (Auto) 0.0 % Neut # (Auto) 6.25 (1.4-6.5) K/uL Lymph # (Auto) 1.12 L (1.2-3.4) K/uL [place] # (Auto) 1.23 H (0.11-0.59) K/uL Eos # (Auto) 0.00 (0-0.5) K/uL Baso # (Auto) 0.00 (0-0.2) K/uL Immature Gran # (Auto) 0.13 H (0.00-0.02) K/uL Sodium (136-145) mmol/L Potassium (3.5-5.1) mmol/L Chloride (98-107) mmol/L Carbon Dioxide (21-32) mmol/L Anion Gap (3-11) BUN (7-18) mg/dl Creatinine (0.6-1.4) mg/dl Est Cr Clr Drug Dosing ml/min Est GFR ( Amer) Est GFR (Non-Af Amer) BUN/Creatinine Ratio (10-20) Glucose (70-99) mg/dl POC Glucose 119 H 105 H (70-99) mg/dl Calcium (8.5-10.1) mg/dl Ionized Calcium (1.12-1.32) mmol/L Magnesium (1.8-2.4) mg/dl Total Bilirubin (0.2-1) mg/dl Direct Bilirubin (0-0.2) mg/dl AST (15-37) U/L ALT (12-78) U/L Alkaline Phosphatase (45-117) U/L Troponin I (0-0.045) ng/ml Total Protein (6.4-8.2) gm/dl Albumin (3.4-5.0) gm/dl Globulin (2.5-4.0) gm/dl Albumin/Globulin Ratio (0.9-2) Triglycerides (0-150) mg/dl Cholesterol (0-200) mg/dl LDL Cholesterol, Calc mg/dl VLDL Cholesterol, Calc mg/dl HDL Cholesterol mg/dl Cholesterol/HDL Ratio Lipase (73-393) U/L Specimen Hemolysis COVID-19 Eval Order SARS-CoV-2, RNA, NAAT (NEGATIVE) 04/21/20 04/21/20 04/21/20 Range/Units 19:30 19:30 18:10 WBC (4.8-10.8) K/uL RBC (4.7-6.1) M/uL Hgb (14.0-18.0) g/dL Hct (42-52) % MCV (80-100) fL MCH (25-34) pg MCHC (32-36) g/dL RDW Std Deviation (36.4-46.3) fL RDW Coeff of Rani (11.5-14.5) % Plt Count (130-400) K/uL MPV (7.4-10.4) fL Immature Gran % (Auto) % Neut % (Auto) % Lymph % (Auto) % [place] % (Auto) % Eos % (Auto) % Baso % (Auto) % Neut # (Auto) (1.4-6.5) K/uL Lymph # (Auto) (1.2-3.4) K/uL [place] # (Auto) (0.11-0.59) K/uL Eos # (Auto) (0-0.5) K/uL Baso # (Auto) (0-0.2) K/uL Immature Gran # (Auto) (0.00-0.02) K/uL Sodium 134 L (136-145) mmol/L Potassium 4.9 (3.5-5.1) mmol/L Chloride 103 (98-107) mmol/L Carbon Dioxide 23 (21-32) mmol/L Anion Gap 8.0 (3-11) BUN 22 H (7-18) mg/dl Creatinine 2.55 H (0.6-1.4) mg/dl Est Cr Clr Drug Dosing 34.1 ml/min Est GFR ( Amer) 32.7 Est GFR (Non-Af Amer) 28.2 BUN/Creatinine Ratio 8.4 L (10-20) Glucose 124 H (70-99) mg/dl POC Glucose (70-99) mg/dl Calcium 10.0 (8.5-10.1) mg/dl Ionized Calcium (1.12-1.32) mmol/L Magnesium (1.8-2.4) mg/dl Total Bilirubin 0.5 (0.2-1) mg/dl Direct Bilirubin (0-0.2) mg/dl AST 65 H (15-37) U/L ALT 148 H (12-78) U/L Alkaline Phosphatase 207 H (45-117) U/L Troponin I < 0.015 (0-0.045) ng/ml Total Protein 8.1 (6.4-8.2) gm/dl Albumin 4.2 (3.4-5.0) gm/dl Globulin 3.9 (2.5-4.0) gm/dl Albumin/Globulin Ratio 1.1 (0.9-2) Triglycerides (0-150) mg/dl Cholesterol (0-200) mg/dl LDL Cholesterol, Calc mg/dl VLDL Cholesterol, Calc mg/dl HDL Cholesterol mg/dl Cholesterol/HDL Ratio Lipase 1163 H (73-393) U/L Specimen Hemolysis COVID-19 Eval Order Covid19 [facility] SARS-CoV-2, RNA, NAAT NEGATIVE (NEGATIVE) 04/21/20 Range/Units 18:10 WBC 8.87 (4.8-10.8) K/uL RBC 4.44 L (4.7-6.1) M/uL Hgb 12.9 L (14.0-18.0) g/dL Hct 38.4 L (42-52) % MCV 86.5 (80-100) fL MCH 29.1 (25-34) pg MCHC 33.6 (32-36) g/dL RDW Std Deviation 43.4 (36.4-46.3) fL RDW Coeff of Rani 13.5 (11.5-14.5) % Plt Count 347 (130-400) K/uL MPV 8.1 (7.4-10.4) fL Immature Gran % (Auto) 1.4 % Neut % (Auto) 75.5 % Lymph % (Auto) 10.6 % [place] % (Auto) 12.4 % Eos % (Auto) 0.0 % Baso % (Auto) 0.1 % Neut # (Auto) 6.70 H (1.4-6.5) K/uL Lymph # (Auto) 0.94 L (1.2-3.4) K/uL [place] # (Auto) 1.10 H (0.11-0.59) K/uL Eos # (Auto) 0.00 (0-0.5) K/uL Baso # (Auto) 0.01 (0-0.2) K/uL Immature Gran # (Auto) 0.12 H (0.00-0.02) K/uL Sodium (136-145) mmol/L Potassium (3.5-5.1) mmol/L Chloride (98-107) mmol/L Carbon Dioxide (21-32) mmol/L Anion Gap (3-11) BUN (7-18) mg/dl Creatinine (0.6-1.4) mg/dl Est Cr Clr Drug Dosing ml/min Est GFR ( Amer) Est GFR (Non-Af Amer) BUN/Creatinine Ratio (10-20) Glucose (70-99) mg/dl POC Glucose (70-99) mg/dl Calcium (8.5-10.1) mg/dl Ionized Calcium (1.12-1.32) mmol/L Magnesium (1.8-2.4) mg/dl Total Bilirubin (0.2-1) mg/dl Direct Bilirubin (0-0.2) mg/dl AST (15-37) U/L ALT (12-78) U/L Alkaline Phosphatase (45-117) U/L Troponin I (0-0.045) ng/ml Total Protein (6.4-8.2) gm/dl Albumin (3.4-5.0) gm/dl Globulin (2.5-4.0) gm/dl Albumin/Globulin Ratio (0.9-2) Triglycerides (0-150) mg/dl Cholesterol (0-200) mg/dl LDL Cholesterol, Calc mg/dl VLDL Cholesterol, Calc mg/dl HDL Cholesterol mg/dl Cholesterol/HDL Ratio Lipase (73-393) U/L Specimen Hemolysis COVID-19 Eval Order SARS-CoV-2, RNA, NAAT (NEGATIVE) Diagnostic Findings CT SCAN OF THE ABDOMEN AND PELVIS WITHOUT IV CONTRAST FINDINGS: Lung bases: The heart is normal in size and without pericardial effusion. The lung bases are clear. There is a tiny hiatal hernia. Liver: The unenhanced liver is enlarged, measuring 20.6 cm in length. The liver is otherwise normal in contour and attenuation. There is no intrahepatic biliary ductal dilatation. Gallbladder: The gallbladder is partially decompressed. The gallbladder wall appears thickened and there is pericholecystic inflammation. Spleen: Normal in size and attenuation. Pancreas: The unenhanced pancreas is grossly unremarkable. Adrenal glands: Unremarkable. Kidneys: The unenhanced kidneys are normal in size and without hydronephrosis. There are no renal calculi identified. There is no evidence of contour deforming renal mass lesion. Abdominal vasculature: The abdominal aorta is normal in course and caliber. Bowel: There is no bowel obstruction. The appendix is well-visualized and normal. Peritoneum: There is no intraperitoneal free air or abdominal ascites. There is a small fat-containing umbilical hernia. Lymphadenopathy: None. Pelvic viscera: The bladder is distended but otherwise normal in appearance. The prostate and seminal vesicles are normal as visualized. Skeletal structures: No lytic or blastic lesions are seen. IMPRESSION: 1. Abnormal appearing gallbladder with findings concerning for acute cholecystit is. Correlate with clinical and laboratory findings. Consider right upper quadrant ultrasound for further assessment. 2. Hepatomegaly. 3. Additional findings as above. MRCP IMPRESSION: 1. Normal MRCP. 2. Mild gallbladder wall thickening and pericholecystic inflammatory change suggested by CT is not apparent on MRI. PG Care Time/CCT Total # of Minutes Spent Total Time Spent with Patient: Total time spent is greater than 50% in coordination of care (as documented) at patient's floor/unit and/or counseling patient: Coding Level of Care Code 04281 Subseq Hosp Care Lvl 2 Diagnoses Cholecystitis K81.9 Pancreatitis K85.90 Transaminitis R74.01 Renal insufficiency N28.9 Diabetes mellitus E11.9
--- NOTE | 2020-04-22 09:25 | Magnetic Resonance Report ---
MRCP CLINICAL HISTORY: Acute cholecystitis. Pancreatitis. COMPARISON STUDY: Abdominal CT dated 04/21/2020. TECHNIQUE: Abdominal MRCP is performed utilizing various T2-weighted sequences in the axial and coron al planes. IV contrast was not administered for this examination. 3-D reformats are created and asses sed. FINDINGS: The gallbladder is partially distended. Wall thickening and surrounding inflammation suggested by CT are not well-visualized by MRI. No gallstones are seen. There is no intra or extrahepatic biliary edmar sariah dilatation. The common bile duct measures up to 4 mm in diameter. There are no filling defects to suggest choledocholithiasis. The pancreatic duct is normal in caliber. The unenhanced liver, spleen, pancreas, adrenal glands, and kidneys are grossly normal. There is no a bdominal ascites. No bowel obstruction is seen. The abdominal aorta is normal in caliber. No pleural effusion is identified. IMPRESSION: 1. Normal MRCP. 2. Mild gallbladder wall thickening and pericholecystic inflammatory change suggested by CT is not ap parent on MRI. Dictated: 04/22/2020 8:58 AM Transcribed: 04/22/2020 9:12 AM Sabrina [id number] [email or web address] Electronically signed by: Mark Milton M.D. 04/22/2020 9:23 AM
--- NOTE | 2020-04-22 10:44 | Electrocardiogram Report ---
Test Reason : Blood Pressure : / mmHG Vent. Rate : 116 BPM Atrial Rate : 116 BPM P-R Int : 192 ms QRS Dur : 092 ms QT Int : 316 ms P-R-T Axes : 026 026 027 degrees QTc Int : 439 ms Sinus tachycardia Septal infarct , age undetermined Abnormal ECG No previous ECGs available Confirmed by Jeremy Rivero ([id number]) on 04/22/2020 10:44:03 AM Referred By: [facility]o [facility] Confirmed By:Jeremy Rivero
[2020-04-22] MEDS: LACTATED RINGER'S 1,000 ML IV SCH ×3 (11:03→23:01)
[2020-04-22] MEDS ORDERED: bisacodyL 10 MG SUPP PR STA (12:58)
[2020-04-22] MEDS: LIDOCAINE 5% 1 PATCH TD SCH (14:23)
--- NOTE | 2020-04-22 16:44 | Anesthesiology Consultation ---
Date of Service April 22, 2020 Assessment & Plan (1) Encounter for pre-operative examination: Chart Review Chart Review: Acceptable Risk for Surgery and Patient NOT seen in Pre Admission Testing covid neg 04/21/20. Consults Requested none History Surgery Operation Date: 04/23/20 11:35 Proposed Procedures p Laparoscopic Cholecystectomy - Raad Miller MD, FACS Height/Weight Height: 5 ft 4 in Weight: 82.6 kg Allergies Allergy/AdvReac Type Severity Reaction Status Date / Time No Known Allergies Allergy Verified 04/21/20 20:03 Medications Home Medications Medication Instructions Recorded Confirmed Last Taken aspirin [Aspirin Low-Strength] 81 mg PO DAILY 04/21/20 04/21/20 Unknown carbamazepine 200 mg PO HS 04/21/20 04/21/20 04/19/20 19:00 diclofenac sodium 50 mg PO TID 04/21/20 04/21/20 Unknown glimepiride 1 mg PO DAILY 04/21/20 04/21/20 Unknown lisinopril 20 mg PO DAILY 04/21/20 04/21/20 Unknown metformin 1,000 mg PO BID 04/21/20 04/21/20 Unknown nortriptyline 25 mg PO HS 04/21/20 04/21/20 04/19/20 19:00 Active Medications Generic Name Dose Route Start Last Admin Trade Name Mikeq PRN Reason Stop Dose Admin Piperacillin Sod/Tazobactam 115 mls @ 28.75 mls/hr 04/22/20 02:00 04/22/20 13:34 Sod 3.375 gm/ Dextrose IV 05/02/20 01:59 Infused Q8H FAHAD Infusion Protocol Lactated Ringer's 1,000 mls @ 150 mls/hr 04/21/20 23:31 04/22/20 11:03 Lr IV 05/21/20 23:30 150 mls/hr .[id number] FAHAD Administration Famotidine 20 mg/ Syringe 5 mls @ 2.5 mls/min 04/22/20 05:00 04/22/20 06:03 IV 05/22/20 04:59 2.5 mls/min BID FAHAD Administration Insulin Aspart 0 units 04/22/20 00:00 04/22/20 12:03 Insulin Aspart 100 Units/Ml 3 Ml Pen SC 05/22/20 00:00 Not Given Q6 FAHAD Lidocaine 1 patch 04/22/20 13:00 04/22/20 14:23 Lidocaine 5% 1 Patch TD 05/22/20 12:59 1 patch QAM FAHAD Administration Past Medical History Medical History (Updated 04/22/20 @ 16:45 by Aj Chaudhari MD) CELESTE (acute kidney injury) Diabetes mellitus Pancreatitis Renal insufficiency Transaminitis Exercise / Class Metabolic Activity II 4-5 Yardwork/Stairs/Walk up hill Social History Smoking Status: Never smoker Hx Alcohol Use: Yes Alcohol type: beer Hx Substance Use: No Physical Exam Vital Signs Last Vital Signs Temp 36.7 C 04/22/20 14:59 Pulse 81 04/22/20 14:59 Resp 17 04/22/20 14:59 BP 143/85 H 04/22/20 14:59 Pulse Ox 98 04/22/20 14:59 Testing Laboratory Results 04/22/20 06:08 04/22/20 06:08 04/22/20 04/22/20 11:59 05:54 POC Glucose 123 H 119 H Chest X-Ray Date: 04/21/20 DICTATED BY: Jeremy Rivero MD Test Reason : Blood Pressure : / mmHG Vent. Rate : 116 BPM Atrial Rate : 116 BPM P-R Int : 192 ms QRS Dur : 092 ms QT Int : 316 ms P-R-T Axes : 026 026 027 degrees QTc Int : 439 ms Sinus tachycardia Septal infarct , age undetermined Abnormal ECG No previous ECGs available Confirmed by Jeremy Rivero ([id number]) on 04/22/2020 10:44:03 AM
[2020-04-22] MEDS: carBAMazepine 200 MG TABLET PO SCH (20:23)
[2020-04-22] MEDS: INSULIN GLARGINE SOLOSTAR 100 UNITS/ML 3 ML PEN SC SCH (20:54)
[2020-04-22] MEDS ORDERED: NORTRIPTYLINE HCL 25 MG CAP PO SCH (21:00)
[2020-04-23] MEDS: INSULIN ASPART 100 UNITS/ML 3 ML PEN SC SCH ×5 (00:46→22:26)
[2020-04-23] MEDS: PIPERACILLIN/TAZOBACTAM 3.375 GM in DEXTROSE 5% 100 ML IV SCH ×3 (03:15→17:36)
--- NOTE | 2020-04-23 05:48 | History & Physical Bridge Note ---
Date of Service April 23, 2020 History & Physical Bridge Note I have examined the patient, reviewed the History & Physical and in the interval since the performance of the History & Physical I have noted the following changes of clinical significance: no changes noted
[2020-04-23] MEDS: LACTATED RINGER'S 1,000 ML IV SCH ×3 (05:49→14:51)
[2020-04-23 07:01] LABS: Basophils # (auto) 0.01 K/uL (0-0.2); Basophils % (auto) 0.1 %; Hematocrit (blood only) 32.8 % (42-52); Hemoglobin 11.2 g/dL (14.0-18.0); Immature Granulocytes # (auto) 0.09 K/uL (0.00-0.02); Lymphocytes # (auto) 1.06 K/uL (1.2-3.4); Mean Corpuscular Hemoglobin 29.6 pg (25-34); Mean Corpuscular Hgb Conc 34.1 g/dL (32-36); Mean Corpuscular Volume 86.5 fL (80-100); Monocytes # (auto) 1.06 K/uL (0.11-0.59); Neutrophils # (auto) 6.61 K/uL (1.4-6.5); Neutrophils % (auto) 74.9 %; Platelet Count 290 K/uL (130-400); RDW Coefficient of Variation 13.2 % (11.5-14.5); RDW Standard Deviation 42.3 fL (36.4-46.3); Red Blood Count 3.79 M/uL (4.7-6.1); White Blood Count 8.83 K/uL (4.8-10.8)
[2020-04-23 07:40] LABS: BUN Creatinine Ratio 5.9 (10-20); Calcium 9.1 mg/dl (8.5-10.1); Est GFR (African American) 42.8; Est GFR (Non-African American) 36.9; Magnesium 1.9 mg/dl (1.8-2.4); Potassium 4.2 mmol/L (3.5-5.1)
[2020-04-23] MEDS: LIDOCAINE 5% 1 PATCH TD SCH (07:59)
[2020-04-23] MEDS: FAMOTIDINE 20 MG in SYRINGE 3 ML IV SCH ×2 (08:00→21:15)
--- NOTE | 2020-04-23 08:15 | Hospitalist Progress Note ---
Date of Service April 23, 2020 Assessment & Plan (1) Cholecystitis: * Acute cholecystitis/pancreatitis/transaminitis- concerning for gallstone pancreatitis * CT with abnormal appearing GB. * MRCP normal without GB thickening seen on CT * General surgery consulted -- plans for OR today * Clear liquid diet ordered yesterday but currently NPO for OR this morning with Dr. Miller * Continue Zosyn (day 2 of therapy) * Lipase 1163 on admission, repeat 944 and down to 756 * Continue IVF with LR , but increased to 200cc/hr and will repeat in AM * LFTs improving but still elevated -- continue to trend on AM labs * Triglycerides elevated to 178 -- discussed w patient and plans for repeat with diet changes vs medication initiation but would hold off acutely given elevated LFTs at this time * Pain control, Antiemetics * Continue Pepcid IV BID * AVOID NSAIDs -- had been taking meloxicam, diclofenac, and ibuprofen prior to admission * NPO * Labs in AM (2) Pancreatitis: * See above * Lipase trending down, currently 756 (3) Transaminitis: * See above * Repeat LFTs with Tbili 0.6, direct 0.2, AST 28, ALT 90H, Alk phos 143H * Continue to trend (4) Renal insufficiency: * Renal insufficiency- Unknown baseline with creatinine on the patient 2.55. * Holding lisinopril * IV fluids as noted above but increased to 200cc/hr * Patient had been taking meloxicam, diclofenac, and ibuprofen prior to admission * Cr still elevated but improved to 2.04 * Avoid nephrotoxic medications, renally dose medications when able * BMP in AM (5) Diabetes mellitus: * Hold glimepiride * Hold Metformin, and do not resume unless GFR is improved * Placed on Accu-Cheks before meals and at bedtime/every 6 hours with NovoLog coverage per scale * A1c pending * BSGs 87-123 during admission DVT Prophylaxis SCDs Chemoproph held for OR Dispo: NPO for OR later this morning with Dr. Miller Admission and Anticipated Discharge Date Admission Date: April 21, 2020 Subjective Patient evaluated this morning. Doing well. Pain controlled, none reported. Low back pain resolved -- believed from laying in bed in wrong position. No nausea. Lipase improved but still elevated and discussed increasing his IVF. Plans for OR this morning for lab poncho with Dr. Miller. Has not seen him yet this morning. No fever, chills, chest pain, shortness of breath, abdoiminal pain, dysuria at this time. Questions/concerns addressed. Discussed elevated triglycerides -- he has hx of HLD and elevated cholesterol and was on medication in the past but made dietary changes and was taken off with normal cholesterol on panel. Discussed in future repeating labs if able to make dietary changes and reduce on his own. Review of Systems Review of Systems: All systems reviewed & are unremarkable except as noted in HPI & below Physical Exam Constitutional: WD/WN, vitals as above + obese, cooperative and comfortable; no acute distress Eyes: + anicteric sclerae and PERRL ENMT: Ears: no hearing impairment Neck: normal visual inspection and trachea midline Respiratory: normal respiratory effort, lungs clear to auscultation Cardiovascular: RRR, no murmur, no edema Gastrointestinal (Abdomen): normal bowel sounds, soft, nontender, no hepatosplenomegaly Musculoskeletal: no cyanosis or clubbing, extremities motor strength 5/5 Skin: no rashes, warm and dry Neurologic: PERRL, EOMI, accommodation nl, no face palsy, no dysarthria Psychiatric: Orientation: alert and oriented x 3 Results & Data Results & Data ([facility]) Vital Signs (Past 12 Hours) Vital Signs Temp Pulse Resp BP Pulse Ox 04/23/20 07:12 36.5 C 86 16 127/78 94 04/23/20 00:05 36.7 C 92 H 18 151/87 H 97 Laboratory Results 04/23/20 04/23/20 04/23/20 Range/Units 06:38 06:38 06:38 WBC 8.83 (4.8-10.8) K/uL RBC 3.79 L (4.7-6.1) M/uL Hgb 11.2 L (14.0-18.0) g/dL Hct 32.8 L (42-52) % MCV 86.5 (80-100) fL MCH 29.6 (25-34) pg MCHC 34.1 (32-36) g/dL RDW Std Deviation 42.3 (36.4-46.3) fL RDW Coeff of Rani 13.2 (11.5-14.5) % Plt Count 290 (130-400) K/uL MPV 8.0 (7.4-10.4) fL Immature Gran % (Auto) 1.0 % Neut % (Auto) 74.9 % Lymph % (Auto) 12.0 % [place] % (Auto) 12.0 % Eos % (Auto) 0.0 % Baso % (Auto) 0.1 % Neut # (Auto) 6.61 H (1.4-6.5) K/uL Lymph # (Auto) 1.06 L (1.2-3.4) K/uL [place] # (Auto) 1.06 H (0.11-0.59) K/uL Eos # (Auto) 0.00 (0-0.5) K/uL Baso # (Auto) 0.01 (0-0.2) K/uL Immature Gran # (Auto) 0.09 H (0.00-0.02) K/uL Sodium 140 (136-145) mmol/L Potassium 4.2 (3.5-5.1) mmol/L Chloride 107 (98-107) mmol/L Carbon Dioxide 28 (21-32) mmol/L Anion Gap 5.0 (3-11) BUN 12 (7-18) mg/dl Creatinine 2.04 H (0.6-1.4) mg/dl Est Cr Clr Drug Dosing 42.0 ml/min Est GFR ( Amer) 42.8 Est GFR (Non-Af Amer) 36.9 BUN/Creatinine Ratio 5.9 L (10-20) Glucose 110 H (70-99) mg/dl POC Glucose (70-99) mg/dl Estimat Average Glucose Pending Hemoglobin A1c Pending Calcium 9.1 (8.5-10.1) mg/dl Magnesium 1.9 (1.8-2.4) mg/dl Total Bilirubin (0.2-1) mg/dl Direct Bilirubin (0-0.2) mg/dl AST (15-37) U/L ALT (12-78) U/L Alkaline Phosphatase (45-117) U/L Total Protein (6.4-8.2) gm/dl Albumin (3.4-5.0) gm/dl Lipase 756 H (73-393) U/L 04/23/20 04/23/20 04/22/20 Range/Units 05:47 00:03 20:44 WBC (4.8-10.8) K/uL RBC (4.7-6.1) M/uL Hgb (14.0-18.0) g/dL Hct (42-52) % MCV (80-100) fL MCH (25-34) pg MCHC (32-36) g/dL RDW Std Deviation (36.4-46.3) fL RDW Coeff of Rani (11.5-14.5) % Plt Count (130-400) K/uL MPV (7.4-10.4) fL Immature Gran % (Auto) % Neut % (Auto) % Lymph % (Auto) % [place] % (Auto) % Eos % (Auto) % Baso % (Auto) % Neut # (Auto) (1.4-6.5) K/uL Lymph # (Auto) (1.2-3.4) K/uL [place] # (Auto) (0.11-0.59) K/uL Eos # (Auto) (0-0.5) K/uL Baso # (Auto) (0-0.2) K/uL Immature Gran # (Auto) (0.00-0.02) K/uL Sodium (136-145) mmol/L Potassium (3.5-5.1) mmol/L Chloride (98-107) mmol/L Carbon Dioxide (21-32) mmol/L Anion Gap (3-11) BUN (7-18) mg/dl Creatinine (0.6-1.4) mg/dl Est Cr Clr Drug Dosing ml/min Est GFR ( Amer) Est GFR (Non-Af Amer) BUN/Creatinine Ratio (10-20) Glucose (70-99) mg/dl POC Glucose 117 H 87 102 H (70-99) mg/dl Estimat Average Glucose Hemoglobin A1c Calcium (8.5-10.1) mg/dl Magnesium (1.8-2.4) mg/dl Total Bilirubin (0.2-1) mg/dl Direct Bilirubin (0-0.2) mg/dl AST (15-37) U/L ALT (12-78) U/L Alkaline Phosphatase (45-117) U/L Total Protein (6.4-8.2) gm/dl Albumin (3.4-5.0) gm/dl Lipase (73-393) U/L 04/22/20 04/22/20 04/22/20 Range/Units 16:58 11:59 06:08 WBC (4.8-10.8) K/uL RBC (4.7-6.1) M/uL Hgb (14.0-18.0) g/dL Hct (42-52) % MCV (80-100) fL MCH (25-34) pg MCHC (32-36) g/dL RDW Std Deviation (36.4-46.3) fL RDW Coeff of Rani (11.5-14.5) % Plt Count (130-400) K/uL MPV (7.4-10.4) fL Immature Gran % (Auto) % Neut % (Auto) % Lymph % (Auto) % [place] % (Auto) % Eos % (Auto) % Baso % (Auto) % Neut # (Auto) (1.4-6.5) K/uL Lymph # (Auto) (1.2-3.4) K/uL [place] # (Auto) (0.11-0.59) K/uL Eos # (Auto) (0-0.5) K/uL Baso # (Auto) (0-0.2) K/uL Immature Gran # (Auto) (0.00-0.02) K/uL Sodium (136-145) mmol/L Potassium (3.5-5.1) mmol/L Chloride (98-107) mmol/L Carbon Dioxide (21-32) mmol/L Anion Gap (3-11) BUN (7-18) mg/dl Creatinine (0.6-1.4) mg/dl Est Cr Clr Drug Dosing ml/min Est GFR ( Amer) Est GFR (Non-Af Amer) BUN/Creatinine Ratio (10-20) Glucose (70-99) mg/dl POC Glucose 100 H 123 H (70-99) mg/dl Estimat Average Glucose Hemoglobin A1c Calcium (8.5-10.1) mg/dl Magnesium (1.8-2.4) mg/dl Total Bilirubin 0.5 (0.2-1) mg/dl Direct Bilirubin 0.1 (0-0.2) mg/dl AST 47 H (15-37) U/L ALT 125 H (12-78) U/L Alkaline Phosphatase 163 H (45-117) U/L Total Protein 7.1 (6.4-8.2) gm/dl Albumin 3.6 (3.4-5.0) gm/dl Lipase (73-393) U/L PG Care Time/CCT Total # of Minutes Spent Total Time Spent with Patient: Total time spent is greater than 50% in coor dination of care (as documented) at patient's floor/unit and/or counseling patient: Coding Level of Care Code 42386 Subseq Hosp Care Lvl 2 Diagnoses Cholecystitis K81.9 Pancreatitis K85.90 Transaminitis R74.01 Renal insufficiency N28.9 Diabetes mellitus E11.9
[2020-04-23 09:13] LABS: Albumin Level 3.4 gm/dl (3.4-5.0); Bilirubin,Total 0.6 mg/dl (0.2-1); Total Protein 6.5 gm/dl (6.4-8.2)
[2020-04-23 09:33] LABS: Bilirubin Direct 0.2 mg/dl (0-0.2)
[2020-04-23] MEDS ORDERED: PROPOFOL IV EMULSION 10 MG/ML 20 ML VIAL IV ONE (11:07)
[2020-04-23] MEDS ORDERED: LIDOCAINE HCL 2% 2 ML VIAL/AMP(20MG/ML) INFIL ONE (11:07)
[2020-04-23] MEDS ORDERED: ONDANSETRON INJ 2 MG/ML 2 ML VIAL ONE (11:07)
[2020-04-23] MEDS ORDERED: ROCURONIUM BROMIDE 10 MG/ML 5 ML VIAL IV ONE (11:07)
[2020-04-23] MEDS ORDERED: MIDAZOLAM HCL 1 MG/ML 2ML VIAL ONE (11:08)
[2020-04-23] MEDS ORDERED: fentaNYL citrate 100 MCG/2 ML VIAL ONE ×2 (11:08→13:11)
[2020-04-23] MEDS ORDERED: BUPIVACAINE 0.5 % 5 MG/1 ML MPF 30ML VIAL ONE (11:38)
[2020-04-23] MEDS ORDERED: ONDANSETRON INJ 2 MG/ML 2 ML VIAL IV PRN (12:13)
[2020-04-23] MEDS ORDERED: HYDROmorphone INJ 2 MG/ML SYR/VIAL IV PRN (12:13)
[2020-04-23] MEDS ORDERED: ATROPINE SULFATE 0.1 MG/ML 10ML SYR IV PRN (12:13)
[2020-04-23] MEDS ORDERED: ePHEDrine sulfate 50 MG/ML AMP IV PRN (12:13)
[2020-04-23] MEDS ORDERED: hydrALAZINE HCL 20 MG/ML VIAL IV PRN (12:34)
--- NOTE | 2020-04-23 13:17 | Post Operative Brief Note ---
PG Immediate Post Op with CF Date of Surgery April 23, 2020 Pre & Post Diagnosis Operation Date: 04/23/20 11:35 Pre-Op Diagnosis: GALLSTONE, PANCREATITIS, cholecystitis Post-Op Diagnosis: GALLSTONE, PANCREATITIS, acute and chronic cholecystitis I identified the patient and participated in the time-out.: Yes Procedure Operation Date: 04/23/20 11:35 Actual Procedures p Laparoscopic Cholecystectomy(Not Applicable) - Raad Miller MD, FACS Surgeon Raad Miller MD, FACS Flattening Machine Operator Cata Corcoran Estimated Blood Loss 10 Findings Consistent with Post-Op Diagnosis Specimens Specimen Description: A: Gallbladder and Contents
[2020-04-23] MEDS ORDERED: ACETAMINOPHEN 1,000 MG/100 ML VIAL IV ONE (13:30)
[2020-04-23] MEDS: fentaNYL citrate 100 MCG/2 ML VIAL IV PRN ×2 (13:43→13:52)
--- NOTE | 2020-04-23 14:27 | Anesthesiology Progress Note ---
Date of Service April 23, 2020 Anesthesia Post Procedure Vital Signs Vital Signs: Temp Pulse Pulse Resp BP BP Pulse Ox 04/23/20 14:10 36.2 C L 78 18 148/84 H 94 04/23/20 14:00 87 18 157/87 H 95 04/23/20 13:50 77 16 155/89 H 97 04/23/20 13:40 78 18 137/86 100 04/23/20 13:30 79 20 131/85 100 04/23/20 13:28 36.2 C L 82 24 138/84 100 04/23/20 11:58 36.8 C 85 18 161/96 H 99 04/23/20 07:12 36.5 C 86 16 127/78 94 04/23/20 00:05 36.7 C 92 H 18 151/87 H 97 04/22/20 14:59 36.7 C 81 17 143/85 H 98 Pain Intensity Abdomen: Pain Intensity: 6 Transfer of Care Handoff Completed per policy Notes Mental Status: alert / awake / arousable and participated in evaluation Patient Amnestic to Procedure: Yes Nausea / Vomiting: adequately controlled Pain: adequately controlled Airway Patency, RR, SpO2: stable & adequate BP & HR: stable & adequate Hydration State: stable & adequate Anesthetic Complications: no major complications apparent
[2020-04-23] MEDS ORDERED: PROMETHAZINE HCL 25 MG in SODIUM CHLORIDE 0.9% 50 ML IV PRN (14:34)
[2020-04-23] MEDS ORDERED: PROMETHAZINE HCL 12.5 MG in SODIUM CHLORIDE 0.9% 50 ML IV PRN (14:34)
[2020-04-23] MEDS ORDERED: HYDROCODONE/ACETAMOPHEN 5/325MG TAB PO PRN (14:34)
[2020-04-23] MEDS ORDERED: ACETAMINOPHEN 325 MG TAB PO PRN (14:34)
[2020-04-23] MEDS: SODIUM CHLORIDE 0.9% 1000ML 1,000 ML IV SCH (14:47)
[2020-04-23] MEDS ORDERED: DEXTROSE 50% 50 ML SYRINGE IV PRN (14:59)
[2020-04-23] MEDS ORDERED: GLUCOSE 40% GEL 15 GM TUBE PO PRN (14:59)
[2020-04-23] MEDS ORDERED: GLUCOSE 10 TABS/TUBE PO PRN (14:59)
[2020-04-23] MEDS ORDERED: GLUCAGON FOR INJ 1 MG VIAL SQ PRN (14:59)
[2020-04-23] MEDS ORDERED: CARBOHYDRATES FOR HYPOGLYCEMIA PO PRN (14:59)
--- NOTE | 2020-04-23 15:23 | Operative Report (OR) ---
DATE OF OPERATION: 04/23/2020 NAME OF OPERATION: Laparoscopic cholecystectomy. PREOPERATIVE DIAGNOSES: Cholecystitis and gallstone pancreatitis. POSTOPERATIVE DIAGNOSES: Acute and chronic cholecystitis and gallstone pancreatitis. STAFF SURGEON: Raad Miller MD. MOLD BLOWER: Emilia Corcoran PA-C. ANESTHESIA: General. DESCRIPTION OF PROCEDURE: The patient was brought in the operating room and placed on the operating table in supine position. His abdomen was prepped and draped in usual fashion. Pneumatic stockings, orogastric tube were placed. Incision was made above the umbilicus using 0.5% plain Marcaine to anesthetize all incisions. Incision was carried down to the fascia. Veress needle placed. Pneumoperitoneum produced. An 11 mm port placed at this level and then under visualization, three 5 mm ports were placed, 1 cephalad and 2 laterally. Gallbladder was grasped and retracted. It was thickened and inflamed. It showed evidence of acute and chronic cholecystitis. My orthodontic technician assistant helped with prepping, draping, removal of the gallbladder and closure of the wound. Dissection was carried out to yamila hepatis, identifying the cystic duct and cystic artery. These were clipped and transected. The gallbladder was dissected away from the liver bed in the usual fashion. There was significant edema in the posterior wall. Gallbladder was placed in an Endobag. The Endobag was removed from the umbilical site. I did have to enlarge the fascial defect to remove the gallbladder. At this point, the fascia at the umbilicus closed using running and interrupted 0 PDS suture. The abdomen was reinsufflated and a 5 mm scope used to check for bleeding at the port sites of which there was none. All ports were then removed. Subcutaneous tissue at the umbilicus closed using 2-0 plain suture and then the skin reapproximated using subcuticular 4-0 Monocryl with Dermabond. The patient was transferred to recovery room in stable condition. I attest to the content of the Intraoperative Record and any orders documented therein. Any exception s are noted below.
[2020-04-23] MEDS: ONDANSETRON INJ 2 MG/ML 2 ML VIAL IV PRN ×2 (16:16→21:14)
[2020-04-23] MEDS: HYDROmorphone INJ 1 MG/ML SYRINGE IV PRN (21:38)
[2020-04-23] MEDS: INSULIN GLARGINE SOLOSTAR 100 UNITS/ML 3 ML PEN SC SCH (22:27)
[2020-04-23] MEDS: carBAMazepine 200 MG TABLET PO SCH (22:29)
[2020-04-23] MEDS: DOCUSATE SODIUM/SENNA 50/8.6MG TAB PO SCH (22:30)
--- NOTE | 2020-04-23 22:30 | Communication Note ---
Date of Service: April 23, 2020 I was contacted by the hospital service at approximately 10:00 PM this evening with concerns that patient was having significant abdominal pain. Earlier today this patient underwent a successful laparoscopic cholecystectomy. Visited with the patient at the bedside at approximately 10:10 PM. Patient notes that he was initially feeling well after his surgery. He notes that he did eat a small amount of solid food for lunch. He says since that time he has not had much of an appetite. Shortly before I was contacted by the hospital service the patient was having some abdominal pain primarily located in the epigastric area as well as the right upper quadrant in close proximity to 2 of his surgical incisions. He notes the pain was 7 out of 10 at its worst. He said the pain did not radiate. He did receive 1 mg of Dilaudid prior to my arrival and at the time of my arrival the pain had subsided to approximately 3 out of 10 in severity. Patient has had no fevers, shakes, chills. He denies any nausea or vomiting. He has not moved his bowels since his surgery but has passed a small amount of flatus. He specifically denies any chest pain or shortness of breath. Physical exam the patient is noted to be afebrile with a blood pressure of 98/62. Pulse is approximately 92 and regular. Respirations were 20 and did not appear labored at the time of my exam. His pulse ox was 95% on room air. Patient's abdomen was examined. He had 4 laparoscopic incisions that were well approximated and there is no signs of any drainage or bleeding from these incisions. When his abdomen was palpated the incision closest to the epigastric area as well as the incision in the right upper quadrant were very painful to palpation. I discussed with the nurse at bedside and the patient has received 1 mg of Dilaudid as noted above. This is the only pain medication that has been given to him since his surgery. Patient's abdominal pain that was present earlier has somewhat subsided. I suspect the patient's pain is just postoperative in nature. Typically local anesthetic is injected in the incisions at the time of surgery and this is likely starting to wear off. We will continue close clinical observation and use of as needed analgesics that are ordered. I instructed the nurse to call me if there is any clinical change or any concerns.
[2020-04-23] MEDS: MAGNESIUM HYDROXIDE SUSP 30 ML UDC PO SCH (22:38)
--- NOTE | 2020-04-23 23:03 | Communication Note ---
Date of Service: April 23, 2020 Called to bedside by nursing to evaluate patient for increase respirations, tight abdomen, increasing pain after lap poncho earlier today. At bedside patient appears comfortable until his abdomen is touched. Exquisitely tender to soft touch. No rebound, no guarding, RUQ/Epigastric tenderness the most. no overlying erythema, incisions intact, clean. Patient states pain is worse when taking a deep breath, bearing down. had some difficulty urinating after surgery, has not been able to pass gas or BM due to pain. Asked nursing to administer 1 mg dialudid prn that was already ordered. Asked nursing to bladder scan for urinary retention: scanned for 591 ml. Duran catheter placed. Called Kevyn Vasquez surgical PA to come take a look at patient for opinion. -- advised continue bladder decompression and pain control with PRNs. re-evalated patient after some time, appeared more comfortable, breathing eased somewhat and abdomen mildly less tender. Duran bag with 600 ml yellow urine.
[2020-04-23] MEDS ORDERED: LACTATED RINGER'S 1,000 ML IV SCH (23:45)
[2020-04-24 01:10] LABS: Hematocrit (blood only) 22.9 % (42-52); Hemoglobin 7.9 g/dL (14.0-18.0); Mean Corpuscular Hgb Conc 34.5 g/dL (32-36); Mean Corpuscular Volume 87.1 fL (80-100); Platelet Count 419 K/uL (130-400); RDW Coefficient of Variation 13.4 % (11.5-14.5); RDW Standard Deviation 43.2 fL (36.4-46.3); Red Blood Count 2.63 M/uL (4.7-6.1)
[2020-04-24 01:13] LABS: Immature Granulocytes # (auto) 0.13 K/uL (0.00-0.02); Immature Granulocytes % (auto) 0.7 %; Lymphocytes # (auto) 1.72 K/uL (1.2-3.4); Lymphocytes % (auto) 8.8 %; Monocytes # (auto) 0.53 K/uL (0.11-0.59); Monocytes % (auto) 2.7 %; Neutrophils # (auto) 17.22 K/uL (1.4-6.5); Neutrophils % (auto) 87.8 %; RBC Morphology Unremarkable
[2020-04-24] MEDS: ALBUMIN 25% 12.5 GM/50 ML VIAL IV SCH ×4 (01:40→03:27)
[2020-04-24] MEDS ORDERED: SODIUM CHLORIDE 0.9% 250 ML IV PRN ×3 (01:58→06:08)
--- NOTE | 2020-04-24 02:03 | Surgery Progress Note ---
Date of Service April 24, 2020 Assessment & Plan (1) Status post laparoscopic cholecystectomy: Patient with abdominal pain, became hypotensive and tachycardic He had some Dilaudid at approximately 9:30 PM He did respond to IV fluids, an H&H was obtained-it was 7.9/22.9 Patient's urine output earlier was 650 in the Duran catheter The patient most likely had some perioperative bleeding We will transfer him to the intensive care unit for close monitoring, transfuse 1 unit of blood Monitor his H&H, and his vital signs If he does not stabilize we will take him back to the operating room Admission and Anticipated Discharge Date Admission Date: April 21, 2020 Results & Data ([facility]) Vital Signs (Past 12 Hours) Vital Signs Temp Pulse Pulse Resp BP BP Pulse Ox 04/24/20 01:37 36.7 C 102 H 18 107/61 99 04/24/20 00:57 82 92/58 L 04/24/20 00:43 85 80/52 L 04/24/20 00:25 93 H 87/59 L 04/24/20 00:16 93 H 85/60 L 04/23/20 23:59 89 70/48 L 04/23/20 23:43 94 H 70/47 L 97 04/23/20 23:36 95 H 73/48 L 95 04/23/20 23:35 95 H 64/47 L 04/23/20 23:32 95 H 70/51 L 04/23/20 23:29 96 H 71/48 L 94 04/23/20 22:15 103/67 04/23/20 21:46 92 H 98/69 L 04/23/20 21:42 92 H 95/65 L 04/23/20 21:31 90 94/62 L 04/23/20 21:24 96 H 92/66 L 04/23/20 21:20 36.7 C 97 H 32 H 99/70 L 95 04/23/20 20:05 36.5 C 100 H 18 115/73 98 04/23/20 17:25 36.6 C 88 16 127/79 99 04/23/20 16:20 80 18 128/75 95 04/23/20 15:15 80 16 143/76 H 91 04/23/20 14:45 71 16 127/74 96 04/23/20 14:10 36.2 C L 78 18 148/84 H 94 PG Care Time/CCT Total # of Minutes Spent Total Time Spent with Patient: Total time spent is greater than 50% in co ordination of care (as documented) at patient's floor/unit and/or counseling patient: Coding Level of Care Code None Diagnoses Status post laparoscopic cholecystectomy Z90.49
[2020-04-24 02:15] LABS: Albumin Level 3.2 gm/dl (3.4-5.0); BUN Creatinine Ratio 5.9 (10-20); Calcium 8.2 mg/dl (8.5-10.1); Creatinine Clr Calc Pharmacy 37.8 ml/min; Est GFR (African American) 37.6; Est GFR (Non-African American) 32.4; Potassium 4.3 mmol/L (3.5-5.1)
--- NOTE | 2020-04-24 02:18 | Communication Note ---
Date of Service: April 24, 2020 Called by RN that pt. was hypotensive. She noted that SBP was in the 80 and hospitalists ordered 1 liter if NSS. After NSS given BP had risen to the 90s. In addition his pulse ox was 90% on 1 liter of oxygen. Urine output noted to be good with about 500 cc over last 3 hours. Pt. seen and examined--he notes he is cold/chilly. He denies CP or SOB. Previously noted abdominal pain had improved. No N/V. On exam pt. resting in bed and appeared comfortable with intermittent shakes. CV--RRR, Lungs are decreased at bases without wheezing. Abdomen has minimal distension with pain near incisions as noted previously. CXR shows bibasilar atelectasis. CBC performed and showed Hb now 7.9, WBC 19.6. Due to drop in H/H, hypotenstion, and hypoxia will tranfer to ICU. T & C x 2 units with 1 unit to be transfused ordered. Called blood bank to verify that order was received. Will keep npo for the present time and hold sub-q heparin.
[2020-04-24 02:19] LABS: Albumin Globulin Ratio 1.1 (0.9-2); Bilirubin,Total 0.5 mg/dl (0.2-1); Globulin 2.9 gm/dl (2.5-4.0); Total Protein 6.1 gm/dl (6.4-8.2)
[2020-04-24] MEDS: PIPERACILLIN/TAZOBACTAM 3.375 GM in DEXTROSE 5% 100 ML IV SCH ×3 (03:25→17:48)
[2020-04-24 04:15] LABS: Alanine Aminotransferase 71 U/L (12-78); Albumin Level 4.2 gm/dl (3.4-5.0); Alkaline Phosphatase 98 U/L (45-117); Aspartate Aminotransferase 30 U/L (15-37); BUN Creatinine Ratio 5.9 (10-20); Bilirubin,Total 0.5 mg/dl (0.2-1); Blood Urea Nitrogen 14 mg/dl (7-18); Calcium 8.5 mg/dl (8.5-10.1); Carbon Dioxide 26 mmol/L (21-32); Chloride 107 mmol/L (98-107); Creatinine Clr Calc Pharmacy 37.6 ml/min; Est GFR (African American) 37.4; Est GFR (Non-African American) 32.3; Glucose 128 mg/dl (70-99); Lipase 296 U/L (73-393); Magnesium 1.8 mg/dl (1.8-2.4); Potassium 4.6 mmol/L (3.5-5.1); Sodium 138 mmol/L (136-145); Total Protein 6.6 gm/dl (6.4-8.2)
[2020-04-24 04:36] LABS: Hematocrit (blood only) 19.8 % (42-52); Hemoglobin 6.8 g/dL (14.0-18.0); Mean Corpuscular Hemoglobin 29.4 pg (25-34); Mean Corpuscular Hgb Conc 34.3 g/dL (32-36); Mean Corpuscular Volume 85.7 fL (80-100); Mean Platelet Volume 7.7 fL (7.4-10.4); Platelet Count 330 K/uL (130-400); RDW Coefficient of Variation 13.4 % (11.5-14.5); RDW Standard Deviation 42.3 fL (36.4-46.3); Red Blood Count 2.31 M/uL (4.7-6.1); White Blood Count 16.05 K/uL (4.8-10.8)
[2020-04-24 04:37] LABS: Immature Granulocytes # (auto) 0.16 K/uL (0.00-0.02); Lymphocytes # (auto) 0.89 K/uL (1.2-3.4); Lymphocytes % (auto) 5.5 %; Monocytes # (auto) 1.18 K/uL (0.11-0.59); Monocytes % (auto) 7.4 %; Neutrophils # (auto) 13.82 K/uL (1.4-6.5); Neutrophils % (auto) 86.1 %; RBC Morphology Unremarkable
[2020-04-24] MEDS ORDERED: ICU PROTOCOL FOR HYPERGLYCEMIA PRN (04:56)
--- NOTE | 2020-04-24 06:08 | Surgery Progress Note ---
Date of Service April 24, 2020 Assessment & Plan (1) Status post laparoscopic cholecystectomy: Patient with postoperative hemorrhage Awake and alert, less abdominal pain Blood pressure has been in the 90s systolic with heart rate in the 90s He is currently receiving his first unit of blood His urine output is adequate, light yellow and clear We will likely give him his second unit of blood and continue to monitor him in the ICU Leave Duran catheter Admission and Anticipated Discharge Date Admission Date: April 21, 2020 Results & Data ([facility]) Vital Signs (Past 12 Hours) Vital Signs Temp Pulse Pulse Pulse Resp BP BP 04/24/20 05:30 36.7 C 89 16 88/59 L 04/24/20 05:06 36.8 C 87 16 85/57 L 04/24/20 05:00 36.7 C 92 H 16 104/54 L 04/24/20 04:55 36.7 C 92 H 16 105/62 04/24/20 04:50 36.7 C 95 H 16 107/66 04/24/20 04:45 36.7 C 92 H 16 96/56 L 04/24/20 04:40 36.7 C 90 16 110/67 04/24/20 04:35 36.8 C 86 16 92/60 L 04/24/20 04:00 86 04/24/20 03:00 87 19 04/24/20 02:52 89 22 96/60 L 04/24/20 02:45 91 H 23 04/24/20 02:37 98 H 27 H 104/62 04/24/20 02:36 101 H 37 H 04/24/20 01:37 36.7 C 102 H 18 107/61 04/24/20 00:57 82 92/58 L 04/24/20 00:43 85 80/52 L 04/24/20 00:25 93 H 87/59 L 04/24/20 00:16 93 H 85/60 L 04/23/20 23:59 89 70/48 L 04/23/20 23:43 94 H 70/47 L 04/23/20 23:36 95 H 73/48 L 04/23/20 23:35 95 H 04/23/20 23:32 95 H 70/51 L 04/23/20 23:29 96 H 71/48 L 04/23/20 22:15 103/67 04/23/20 21:46 92 H 98/69 L 04/23/20 21:42 92 H 95/65 L 04/23/20 21:31 90 94/62 L 04/23/20 21:24 96 H 92/66 L 04/23/20 21:20 36.7 C 97 H 32 H 99/70 L 04/23/20 20:05 36.5 C 100 H 18 BP Pulse Ox 04/24/20 05:30 98 04/24/20 05:06 98 04/24/20 05:00 99 04/24/20 04:55 99 04/24/20 04:50 98 04/24/20 04:45 98 04/24/20 04:40 99 04/24/20 04:35 100 04/24/20 04:00 04/24/20 03:00 100 04/24/20 02:52 98 04/24/20 02:45 96 04/24/20 02:37 92 04/24/20 02:36 04/24/20 01:37 99 04/24/20 00:57 04/24/20 00:43 04/24/20 00:25 04/24/20 00:16 04/23/20 23:59 04/23/20 23:43 97 04/23/20 23:36 95 04/23/20 23:35 64/47 L 04/23/20 23:32 04/23/20 23:29 94 04/23/20 22:15 04/23/20 21:46 04/23/20 21:42 04/23/20 21:31 04/23/20 21:24 04/23/20 21:20 95 04/23/20 20:05 115/73 98 PG Care Time/CCT Total # of Minutes Spent Total Time Spent with Patient: Total time spent is greater than 50% in coordination of care (as documented) at patient's floor/unit and/or counseling patient: Coding Level of Care Code None Diagnoses Status post laparoscopic cholecystectomy Z90.49
--- NOTE | 2020-04-24 07:01 | XRay Report ---
XR chest 1V portable CLINICAL HISTORY: hypoxia COMPARISON STUDY: 04/21/2020 FINDINGS: The cardiac and mediastinal contours remain stable. There are low lung volumes with mild br onchovascular crowding the lung bases. There is no lobar consolidation. There are no large pleural ef fusions[ IMPRESSION: Low lung volumes with hypoventilatory changes of the lung bases ACT 112: Negative or not required by law. Electronically signed by: Som Ring M.D. 04/24/2020 6:59 AM
--- NOTE | 2020-04-24 07:13 | Hospitalist Progress Note ---
Date of Service April 24, 2020 Assessment & Plan (1) Acute blood loss anemia: Pt had increased post operative abdominal pain and noted to have a 4.5 gm drop in hgb, pt was assesed by surgery overnight and is currenlty ordered 2 u prbc, blood pressures are still low and pt is in ICu. He is making urine and his CKD3 is stable at this point (2) Cholecystitis: * Acute cholecystitis/pancreatitis/transaminitis- concerning for gallstone pancreatitis * CT with abnormal appearing GB. * MRCP normal without GB thickening seen on CT * OR 04/23/10 * Continue Zosyn * Lipase trending down * Continue ivf resuscitation * LFTs improving * Continue Pepcid IV BID (3) Pancreatitis: * See above * Lipase trending down, currently 756 (4) Transaminitis: * secondary to cholecystitis, improving (5) Renal insufficiency: * Renal insufficiency- seems to have CKD3 * Holding lisinopril * Patient had been taking meloxicam, diclofenac, and ibuprofen prior to admission * Avoid nephrotoxic medications, renally dose medications when able (6) Diabetes mellitus: * Hold glimepiride * Hold Metformin, and do not resume unless GFR is improved * Placed on Accu-Cheks before meals and at bedtime/every 6 hours with NovoLog coverage per scale * A1c pending * BSGs 87-123 during admission DVT Prophylaxis SCDs Chemoproph held for OR Dispo: NPO for OR later this morning with Dr. Miller Admission and Anticipated Discharge Date Admission Date: April 21, 2020 Subjective Patient abdominal pain worse with palpation. He was slightly hypotensive he received 2 units of blood. Concern from surgery as he is postoperative bleed Review of Systems Review of Systems: Mild distress and fatigue no headache, blurry or double vision no speech or swallowing issues no chest pain, pressure or palpitations no shortness of breath, cough or wheezes Generalized mild abdominal pain, without nausea or vomiting no dysuria, hematuria or frequency no focal joint pain or swelling no back pain, CVA tenderness or radicular pain no bruising, bleeding or rashes no focal signs of weakness or numbness or altered sensation no complaints of anxiety or depression.. Physical Exam Physical Exam: The patient appeared well nourished and normally developed. Vital signs as documented. Head exam is normocephalic atraumatic no scleral icterus Neck is without JVD, thyromegaly, or carotid bruits. Lungs are clear to auscultation, no focal loss of breath sounds Cardiac exam, Rhythm is regular.. No murmurs, rubs or gallops. Abdominal exam reveals hypoactive bowel sounds diffusely tender no rebound or guarding Extremities are nonedematous and both pedal pulses are present Neurologic exam is alert and oriented, no focal loss of strength or sensation Skin is without bruises or rashes appears pale but is receiving transfusion Psychologically is without concerns for anxiety or depression Results & Data Results & Data ([facility]) Vital Signs (Past 12 Hours) Vital Signs Temp Pulse Pulse Pulse Resp BP BP 04/24/20 07:00 98.2 F 83 16 91/52 L 04/24/20 06:36 98.1 F 92 H 16 90/57 L 04/24/20 06:30 98.1 F 92 H 16 90/57 L 04/24/20 06:00 98.1 F 90 16 95/59 L 04/24/20 05:30 98.1 F 89 16 88/59 L 04/24/20 05:06 98.2 F 87 16 85/57 L 04/24/20 05:00 98.1 F 92 H 16 104/54 L 04/24/20 04:55 98.1 F 92 H 16 105/62 04/24/20 04:50 98.1 F 95 H 16 107/66 04/24/20 04:45 98.1 F 92 H 16 96/56 L 04/24/20 04:40 98.1 F 90 16 110/67 04/24/20 04:35 98.2 F 86 16 92/60 L 04/24/20 04:00 86 04/24/20 03:00 87 19 04/24/20 02:52 89 22 96/60 L 04/24/20 02:45 91 H 23 04/24/20 02:37 98 H 27 H 104/62 04/24/20 02:36 101 H 37 H 04/24/20 01:37 98.1 F 102 H 18 107/61 04/24/20 00:57 82 92/58 L 04/24/20 00:43 85 80/52 L 04/24/20 00:25 93 H 87/59 L 04/24/20 00:16 93 H 85/60 L 04/23/20 23:59 89 70/48 L 04/23/20 23:43 94 H 70/47 L 04/23/20 23:36 95 H 73/48 L 04/23/20 23:35 95 H 04/23/20 23:32 95 H 70/51 L 04/23/20 23:29 96 H 71/48 L 04/23/20 22:15 103/67 04/23/20 21:46 92 H 98/69 L 04/23/20 21:42 92 H 95/65 L 04/23/20 21:31 90 94/62 L 04/23/20 21:24 96 H 92/66 L 04/23/20 21:20 98.1 F 97 H 32 H 99/70 L 04/23/20 20:05 97.7 F 100 H 18 BP Pulse Ox 04/24/20 07:00 98 04/24/20 06:36 97 04/24/20 06:30 97 04/24/20 06:00 99 04/24/20 05:30 98 04/24/20 05:06 98 04/24/20 05:00 99 04/24/20 04:55 99 04/24/20 04:50 98 04/24/20 04:45 98 04/24/20 04:40 99 04/24/20 04:35 100 04/24/20 04:00 04/24/20 03:00 100 04/24/20 02:52 98 04/24/20 02:45 96 04/24/20 02:37 92 04/24/20 02:36 04/24/20 01:37 99 04/24/20 00:57 04/24/20 00:43 04/24/20 00:25 04/24/20 00:16 04/23/20 23:59 04/23/20 23:43 97 04/23/20 23:36 95 04/23/20 23:35 64/47 L 04/23/20 23:32 04/23/20 23:29 94 04/23/20 22:15 04/23/20 21:46 04/23/20 21:42 04/23/20 21:31 04/23/20 21:24 04/23/20 21:20 95 04/23/20 20:05 115/73 98 PG Care Time/CCT Total # of Minutes Spent Total Time Spent with Patient: Total time spent is greater than 50% in c oordination of care (as documented) at patient's floor/unit and/or counseling patient: Coding Level of Care Code 39525 Subseq Hosp Care Lvl 3 Diagnoses Acute blood loss anemia D62 Cholecystitis K81.9 Pancreatitis K85.90 Transaminitis R74.01 Renal insufficiency N28.9 Diabetes mellitus E11.9
[2020-04-24] MEDS: INSULIN ASPART 100 UNITS/ML 3 ML PEN SC SCH ×4 (07:34→21:07)
[2020-04-24] MEDS: HYDROmorphone INJ 1 MG/ML SYRINGE IV PRN ×2 (07:36→16:49)
--- NOTE | 2020-04-24 07:38 | Critical Care Consultation ---
Date of Consultation April 24, 2020 History of Present Illness Attending Physician: Jerardo Bales MD History of Present Illness Allergies Allergy/AdvReac Type Severity Reaction Status Date / Time No Known Allergies Allergy Verified 04/21/20 20:03 Home Medications Medication Instructions Recorded Confirmed Type aspirin [Aspirin Low-Strength] 81 mg PO DAILY 04/21/20 04/21/20 History carbamazepine 200 mg PO HS 04/21/20 04/21/20 History diclofenac sodium 50 mg PO TID 04/21/20 04/21/20 History glimepiride 1 mg PO DAILY 04/21/20 04/21/20 History lisinopril 20 mg PO DAILY 04/21/20 04/21/20 History metformin 1,000 mg PO BID 04/21/20 04/21/20 History nortriptyline 25 mg PO HS 04/21/20 04/21/20 History Patient History Medical History (Updated 04/24/20 @ 07:08 by Jerardo Bales MD) CELESTE (acute kidney injury) Diabetes mellitus Pancreatitis Renal insufficiency Transaminitis Social History Smoking Status: Never smoker Hx Alcohol Use: Yes Alcohol type: beer Hx Substance Use: No Preferred Language: Malawian Communication Ability: Effective Muff Winder Required: No Beliefs That Will Affect Care: None Current Living Situation: Other Current Living Situation Comment: [facility] Other Information That Helps Us Care for You: No Feels Safe at Home: Yes Safety Concerns: Feels Safe At This Time Assistive Devices: Glasses Results & Data Results & Data ([facility]) Vital Signs (Past 12 Hours) Vital Signs Temp Pulse Pulse Pulse Resp BP BP 04/24/20 07:00 36.8 C 83 16 91/52 L 04/24/20 06:36 36.7 C 92 H 16 90/57 L 04/24/20 06:30 36.7 C 92 H 16 90/57 L 04/24/20 06:00 36.7 C 90 16 95/59 L 04/24/20 05:30 36.7 C 89 16 88/59 L 04/24/20 05:06 36.8 C 87 16 85/57 L 04/24/20 05:00 36.7 C 92 H 16 104/54 L 04/24/20 04:55 36.7 C 92 H 16 105/62 04/24/20 04:50 36.7 C 95 H 16 107/66 04/24/20 04:45 36.7 C 92 H 16 96/56 L 04/24/20 04:40 36.7 C 90 16 110/67 04/24/20 04:35 36.8 C 86 16 92/60 L 04/24/20 04:00 86 04/24/20 03:00 87 19 04/24/20 02:52 89 22 96/60 L 04/24/20 02:45 91 H 23 04/24/20 02:37 98 H 27 H 104/62 04/24/20 02:36 101 H 37 H 04/24/20 01:37 36.7 C 102 H 18 107/61 04/24/20 00:57 82 92/58 L 04/24/20 00:43 85 80/52 L 04/24/20 00:25 93 H 87/59 L 04/24/20 00:16 93 H 85/60 L 04/23/20 23:59 89 70/48 L 04/23/20 23:43 94 H 70/47 L 04/23/20 23:36 95 H 73/48 L 04/23/20 23:35 95 H 04/23/20 23:32 95 H 70/51 L 04/23/20 23:29 96 H 71/48 L 04/23/20 22:15 103/67 04/23/20 21:46 92 H 98/69 L 04/23/20 21:42 92 H 95/65 L 04/23/20 21:31 90 94/62 L 04/23/20 21:24 96 H 92/66 L 04/23/20 21:20 36.7 C 97 H 32 H 99/70 L 04/23/20 20:05 36.5 C 100 H 18 BP Pulse Ox 04/24/20 07:00 98 04/24/20 06:36 97 04/24/20 06:30 97 04/24/20 06:00 99 04/24/20 05:30 98 04/24/20 05:06 98 04/24/20 05:00 99 04/24/20 04:55 99 04/24/20 04:50 98 04/24/20 04:45 98 04/24/20 04:40 99 03/11/21 04:35 100 04/24/20 04:00 04/24/20 03:00 100 04/24/20 02:52 98 04/24/20 02:45 96 04/24/20 02:37 92 04/24/20 02:36 04/24/20 01:37 99 04/24/20 00:57 04/24/20 00:43 04/24/20 00:25 04/24/20 00:16 04/23/20 23:59 04/23/20 23:43 97 04/23/20 23:36 95 04/23/20 23:35 64/47 L 04/23/20 23:32 04/23/20 23:29 94 04/23/20 22:15 04/23/20 21:46 04/23/20 21:42 04/23/20 21:31 04/23/20 21:24 04/23/20 21:20 95 04/23/20 20:05 115/73 98 Coding
[2020-04-24 08:15] LABS: Estimated Average Glucose 154 mg/dl
[2020-04-24] MEDS ORDERED: CALCIUM GLUCONATE 10% 1,000 MG in SODIUM CHLORIDE 0.9% 50 ML IV STA (08:16)
--- NOTE | 2020-04-24 08:19 | Critical Care Consultation ---
Date of Consultation April 24, 2020 Assessment & Plan (1) Acute blood loss anemia: (2) Status post laparoscopic cholecystectomy: (3) Cholecystitis: Impression: 49-year-old male presenting with acute cholecystitis status post laparoscopic cholecystectomy. He has developed increasing abdominal distention and abdominal pain with a 6 g drop in his hemoglobin overnight prompting return to the ICU. He is currently being resuscitated with IV fluids and packed red blood cells. Recommendations: 1. Acute postoperative blood loss anemia: Suspect intra-abdominal source given the patient's physical exam. Check coagulation panel including fibrinogen. Calcium will be repleted. Will discuss with general surgery need for reimaging versus return to the OR. Other potential etiologies would include hemorrhagic pancreatitis although this appears less likely. GI bleed also possible however given the significant decrease in his hemoglobin hematocrit if this were a GI bleed I would suspect that we would be observing significant melena or hematochezia. 2. Cholecystitis/pancreatitis: Gallstone related. Labs are normal. Could consider repeat imaging if fails to improve. Currently on Zosyn and will continue for now 3. Leukocytosis: Suspect reactive to surgery and current intra-abdominal process. Continue to follow for now. 4. Renal insufficiency: Patient presented with serum creatinine of 2.55 and is currently at 2.28. Baseline is unknown. He does have a history of diabetes. Urine output appears adequate. Continue to follow closely. Electrolytes and acid-base status are acceptable currently. Check UA. Query diabetic nephropathy versus NSAID induced nephropathy. 5. Diabetes: Continue ICU glycemic protocol. 6. Hypertension: Holding antihypertensives currently. Blood pressures are currently acceptable. Continue to follow in ICU for now. 50 minutes critical care time spent evaluating managing patient including discussions with anesthesia and patient at bedside. The patient has potential life-threatening bleeding. History of Present Illness Attending Physician: Jerardo Bales MD History of Present Illness Asked by general surgeons to assist in management with this patient with postoperative anemia densely related to laparoscopic cholecystectomy. History is obtained from review electronic medical record, discussion with the overnight critical care JAXON and interview the patient bedside. Patient is a 49-year-old male who presented to the emergency room 04/22/2020. He is an inmate at [facility]. He complained of several days of nausea and had been on hiatus. He was seen by general surgery. He was taken to the OR yesterday for laparoscopic cholecystectomy. Initially postoperatively the patient was doing well however around 10:00 last night he had pain. Labs revealed a significant decrease in hemoglobin hematocrit and he was. Bowel sounds. Surgery is evaluated the patient and is following closely with co nsiderations for potential return to the OR versus imaging coags are currently pending. Allergies Allergy/AdvReac Type Severity Reaction Status Date / Time No Known Allergies Allergy Verified 04/21/20 20:03 Home Medications Medication Instructions Recorded Confirmed Type aspirin [Aspirin Low-Strength] 81 mg PO DAILY 04/21/20 04/21/20 History carbamazepine 200 mg PO HS 04/21/20 04/21/20 History diclofenac sodium 50 mg PO TID 04/21/20 04/21/20 History glimepiride 1 mg PO DAILY 04/21/20 04/21/20 History lisinopril 20 mg PO DAILY 04/21/20 04/21/20 History metformin 1,000 mg PO BID 04/21/20 04/21/20 History nortriptyline 25 mg PO HS 04/21/20 04/21/20 History Patient History Medical History (Updated 04/24/20 @ 07:08 by Jerardo Bales MD) CELESTE (acute kidney injury) Diabetes mellitus Pancreatitis Renal insufficiency Transaminitis Social History Smoking Status: Never smoker Hx Alcohol Use: Yes Alcohol type: beer Hx Substance Use: No Preferred Language: Italian Communication Ability: Effective Athletics Teacher Required: No Beliefs That Will Affect Care: None Current Living Situation: Other Current Living Situation Comment: Correction[facility] Facility Other Information That Helps Us Care for You: No Feels Safe at Home: Yes Safety Concerns: Feels Safe At This Time Assistive Devices: Glasses Review of Systems Review of Systems: All systems reviewed & are unremarkable except as noted in HPI & below Physical Exam Constitutional: WD/WN, vitals as above Neck: trachea midline, no thyromegaly Respiratory: normal respiratory effort, lungs clear to auscultation Cardiovascular: RRR, no murmur, no edema Gastrointestinal (Abdomen): Inspection/Auscultation: + abdomen distended and + abdominal surgical scar; + abnormal bowel sounds, no abdominal wall ecchymosis and Rogers-Vanegas sign absent Percussion/Palpation: + guarding and + abdomen firm Musculoskeletal: Extremities: extremities normal to inspection Skin: no rashes, warm and dry Neurologic: Nonfocal exam Lymphatic: no cervical lymphadenopathy Results & Data Results & Data ([facility]) Vital Signs (Past 12 Hours) Vital Signs Temp Pulse Pulse Pulse Resp BP BP 04/24/20 07:51 36.8 C 90 18 106/69 04/24/20 07:00 36.8 C 83 16 91/52 L 04/24/20 06:36 36.7 C 92 H 16 90/57 L 04/24/20 06:30 36.7 C 92 H 16 90/57 L 04/24/20 06:00 36.7 C 90 16 95/59 L 04/24/20 05:30 36.7 C 89 16 88/59 L 04/24/20 05:06 36.8 C 87 16 85/57 L 04/24/20 05:00 36.7 C 92 H 16 104/54 L 04/24/20 04:55 36.7 C 92 H 16 105/62 04/24/20 04:50 36.7 C 95 H 16 107/66 04/24/20 04:45 36.7 C 92 H 16 96/56 L 04/24/20 04:40 36.7 C 90 16 110/67 04/24/20 04:35 36.8 C 86 16 92/60 L 04/24/20 04:00 86 04/24/20 03:00 87 19 04/24/20 02:52 89 22 96/60 L 04/24/20 02:45 91 H 23 04/24/20 02:37 98 H 27 H 104/62 04/24/20 02:36 101 H 37 H 04/24/20 01:37 36.7 C 102 H 18 107/61 04/24/20 00:57 82 92/58 L 04/24/20 00:43 85 80/52 L 04/24/20 00:25 93 H 87/59 L 04/24/20 00:16 93 H 85/60 L 04/23/20 23:59 89 70/48 L 04/23/20 23:43 94 H 70/47 L 04/23/20 23:36 95 H 73/48 L 04/23/20 23:35 95 H 04/23/20 23:32 95 H 70/51 L 04/23/20 23:29 96 H 71/48 L 04/23/20 22:15 103/67 04/23/20 21:46 92 H 98/69 L 04/23/20 21:42 92 H 95/65 L 04/23/20 21:31 90 94/62 L 04/23/20 21:24 96 H 92/66 L 04/23/20 21:20 36.7 C 97 H 32 H 99/70 L 04/23/20 20:05 36.5 C 100 H 18 BP Pulse Ox 04/24/20 07:51 04/24/20 07:00 98 04/24/20 06:36 97 04/24/20 06:30 97 04/24/20 06:00 99 04/24/20 05:30 98 04/24/20 05:06 98 04/24/20 05:00 99 04/24/20 04:55 99 04/24/20 04:50 98 04/24/20 04:45 98 04/24/20 04:40 99 04/24/20 04:35 100 04/24/20 04:00 04/24/20 03:00 100 04/24/20 02:52 98 04/24/20 02:45 96 04/24/20 02:37 92 04/24/20 02:36 04/24/20 01:37 99 04/24/20 00:57 04/24/20 00:43 04/24/20 00:25 04/24/20 00:16 04/23/20 23:59 04/23/20 23:43 97 04/23/20 23:36 95 04/23/20 23:35 64/47 L 04/23/20 23:32 04/23/20 23:29 94 04/23/20 22:15 04/23/20 21:46 04/23/20 21:42 04/23/20 21:31 04/23/20 21:24 04/23/20 21:20 95 04/23/20 20:05 115/73 98 Laboratory Results 04/24/20 03:44 04/24/20 03:44 Diagnostic Findings Chest x-ray from this morning was reviewed. Volumes are low. Nonspecific bowel gas pattern. No obvious free air identified Coding Level of Care Code Critical Care 1st 30-74 mins Diagnoses Acute blood loss anemia D62 Status post laparoscopic cholecystectomy Z90.49 Cholecystitis K81.9 Time Spent (min) 55 Comment 55 minutes critical care time
[2020-04-24] MEDS ORDERED: HEPARIN SOD 5,000 UNIT/0.5 ML VIAL SQ SCH (09:00)
[2020-04-24 09:15] LABS: Appearance Urine Clear (Clear); Bacteria Urine Automated Negative (Negative); Bilirubin Urine Negative (Negative); Blood Urine 1+ (Negative); Color Urine Yellow; Epithelial Cell Urine Auto >30 /lpf (0-5); Glucose Urine UA Negative (Negative); Ketones Urine Negative (Negative); Leukocyte Esterase Urine Negative (Negative); Nitrite Urine Negative (Negative); Protein Urine 1+ (Negative); Specific Gravity Urine 1.016 (1.000-1.030); Urobilinogen Urine Negative (Negative); pH Urine 5.5 (4.5-7.5)
[2020-04-24] MEDS: MAGNESIUM HYDROXIDE SUSP 30 ML UDC PO SCH ×2 (10:00→14:44)
[2020-04-24] MEDS: DOCUSATE SODIUM/SENNA 50/8.6MG TAB PO SCH ×2 (10:00→21:03)
[2020-04-24 10:20] LABS: Hematocrit (blood only) 26.6 % (42-52); Hemoglobin 9.1 g/dL (14.0-18.0); Immature Granulocytes # (auto) 0.08 K/uL (0.00-0.02); Immature Granulocytes % (auto) 0.8 %; Lymphocytes # (auto) 1.35 K/uL (1.2-3.4); Lymphocytes % (auto) 12.7 %; Mean Corpuscular Hemoglobin 29.2 pg (25-34); Mean Corpuscular Hgb Conc 34.2 g/dL (32-36); Mean Corpuscular Volume 85.3 fL (80-100); Mean Platelet Volume 7.9 fL (7.4-10.4); Monocytes # (auto) 1.23 K/uL (0.11-0.59); Monocytes % (auto) 11.6 %; Neutrophils # (auto) 7.94 K/uL (1.4-6.5); Neutrophils % (auto) 74.9 %; Platelet Count 252 K/uL (130-400); RDW Coefficient of Variation 13.8 % (11.5-14.5); RDW Standard Deviation 42.6 fL (36.4-46.3); Red Blood Count 3.12 M/uL (4.7-6.1)
[2020-04-24] MEDS: FAMOTIDINE 20 MG in SYRINGE 3 ML IV SCH ×2 (10:24→21:02)
[2020-04-24 10:33] LABS: Fibrinogen 269 mg/dl (184-400); INR 1.2 (0.9-1.1); Prothrombin Time 11.6 Seconds (9.0-12.0)
[2020-04-24] MEDS: LIDOCAINE 5% 1 PATCH TD SCH (10:33)
--- NOTE | 2020-04-24 11:32 | Surgery Progress Note ---
Date of Service April 24, 2020 Assessment & Plan (1) Acute blood loss anemia: Patient received 2 units of packed red blood cells He is currently sitting up in bed conversing with regards He is much less pale His urine output is light yellow and clear His abdomen is mildly distended but not firm, he does have some diffuse tenderness He appears to be stable at the present time Admission and Anticipated Discharge Date Admission Date: April 21, 2020 Results & Data ([facility]) Vital Signs (Past 12 Hours) Vital Signs Temp Pulse Pulse Resp BP BP BP 04/24/20 09:10 86 18 04/24/20 09:09 36.7 C 86 18 108/63 04/24/20 08:41 36.7 C 86 15 112/65 04/24/20 08:40 36.7 C 86 15 108/63 04/24/20 08:25 36.7 C 94 H 18 94/65 L 04/24/20 08:12 36.8 C 94 H 16 107/61 04/24/20 08:00 94 H 04/24/20 07:51 36.8 C 90 18 106/69 04/24/20 07:50 36.8 C 90 18 106/69 04/24/20 07:00 36.8 C 83 16 91/52 L 04/24/20 06:36 36.7 C 92 H 16 90/57 L 04/24/20 06:30 36.7 C 92 H 16 90/57 L 04/24/20 06:00 36.7 C 90 16 95/59 L 04/24/20 05:30 36.7 C 89 16 88/59 L 04/24/20 05:06 36.8 C 87 16 85/57 L 04/24/20 05:00 36.7 C 92 H 16 104/54 L 04/24/20 04:55 36.7 C 92 H 16 105/62 04/24/20 04:50 36.7 C 95 H 16 107/66 04/24/20 04:45 36.7 C 92 H 16 96/56 L 04/24/20 04:40 36.7 C 90 16 110/67 04/24/20 04:35 36.8 C 86 16 92/60 L 04/24/20 04:00 86 04/24/20 03:00 87 19 04/24/20 02:52 89 22 96/60 L 04/24/20 02:45 91 H 23 04/24/20 02:37 98 H 27 H 104/62 04/24/20 02:36 101 H 37 H 04/24/20 01:37 36.7 C 102 H 18 107/61 04/24/20 00:57 82 92/58 L 04/24/20 00:43 85 80/52 L 04/24/20 00:25 93 H 87/59 L 04/24/20 00:16 93 H 85/60 L 04/23/20 23:59 89 70/48 L 04/23/20 23:43 94 H 70/47 L 04/23/20 23:36 95 H 73/48 L 04/23/20 23:35 95 H 64/47 L 04/23/20 23:32 95 H 70/51 L Pulse Ox 04/24/20 09:10 04/24/20 09:09 96 04/24/20 08:41 93 04/24/20 08:40 93 04/24/20 08:25 94 04/24/20 08:12 95 04/24/20 08:00 04/24/20 07:51 04/24/20 07:50 98 04/24/20 07:00 98 04/24/20 06:36 97 04/24/20 06:30 97 04/24/20 06:00 99 04/24/20 05:30 98 04/24/20 05:06 98 04/24/20 05:00 99 04/24/20 04:55 99 04/24/20 04:50 98 04/24/20 04:45 98 04/24/20 04:40 99 04/24/20 04:35 100 04/24/20 04:00 04/24/20 03:00 100 04/24/20 02:52 98 04/24/20 02:45 96 04/24/20 02:37 92 04/24/20 02:36 04/24/20 01:37 99 04/24/20 00:57 04/24/20 00:43 04/24/20 00:25 04/24/20 00:16 04/23/20 23:59 04/23/20 23:43 97 04/23/20 23:36 95 04/23/20 23:35 04/23/20 23:32 PG Care Time/CCT Total # of Minutes Spent Total Time Spent with Patient: Total time spent is greater than 50% in coordination of care (as documented) at patient's floor/unit and/or counseling patient: Coding Level of Care Code None Diagnoses Acute blood loss anemia D62
[2020-04-24] MEDS: SODIUM CHLORIDE 0.9% 1000ML 1,000 ML IV SCH (12:37)
--- NOTE | 2020-04-24 13:26 | Pharmacy Report ---
Pharmacy Glycemic Short Note 2 - Date of Service April 24, 2020 - Glycemic Short BSG Results (Last 24 hours): 04/23/20 04/23/20 04/23/20 13:31 16:52 20:26 Glucose POC Glucose 147 H 179 H 149 H 04/24/20 04/24/20 04/24/20 01:35 02:48 03:44 Glucose 175 H 128 H POC Glucose 163 H 04/24/20 04/24/20 07:29 11:37 Glucose POC Glucose 119 H 89 OUTPATIENT ANTIDIABETIC REGIMEN: * metformin 1 gm PO BID * Amaryl 1 mg daily ASSESSMENT: 04/24 * Patient transferred to ICU this AM for post-op hemorrhage * BSG's have been good, but one BSG below goal at noon today. Etiology is lik maurice 2nd Lantus as patient has not received any Novolog since yesterday. Will reduce Lantus dose for this evening 04/22 * Patient admitted with gallstones and currently NPO. T2DM on two oral medications with unknown control. HbA1C ordered. * Start Novolog weight-based stress 2. * Lantus scale for this evening if BSGs trend upwards. PLAN FOR INPATIENT GLYCEMIC CONTROL: * Hold outpatient oral diabetes medications * Basal insulin * Lantus SQ HS * Lantus 0 units if BSG < 140 mg/dL * Lantus 5 units if BSG >= 140 mg/dL * Bolus insulin * NovoLog per scale ACHS or Q6hrs while NPO * Goal Range: Low 110 mg/dL - High 140 mg/dL * Correction Factor: 30 mg/dL/unit * Nutritional / Prandial insulin per carb ratio of 1 unit per 9 grams CHO consumed PLAN FOR DISCHARGE: * TBD
[2020-04-24 16:21] LABS: Hematocrit (blood only) 26.4 % (42-52); Hemoglobin 8.9 g/dL (14.0-18.0); Immature Granulocytes # (auto) 0.07 K/uL (0.00-0.02); Immature Granulocytes % (auto) 0.7 %; Lymphocytes % (auto) 11.1 %; Mean Corpuscular Hemoglobin 28.6 pg (25-34); Mean Corpuscular Hgb Conc 33.7 g/dL (32-36); Mean Corpuscular Volume 84.9 fL (80-100); Mean Platelet Volume 7.9 fL (7.4-10.4); Monocytes # (auto) 1.16 K/uL (0.11-0.59); Monocytes % (auto) 11.8 %; Neutrophils # (auto) 7.54 K/uL (1.4-6.5); Neutrophils % (auto) 76.4 %; Platelet Count 240 K/uL (130-400); RDW Coefficient of Variation 14.1 % (11.5-14.5); RDW Standard Deviation 43.5 fL (36.4-46.3); Red Blood Count 3.11 M/uL (4.7-6.1); White Blood Count 9.87 K/uL (4.8-10.8)
[2020-04-24] MEDS: carBAMazepine 200 MG TABLET PO SCH (21:02)
[2020-04-24] MEDS: INSULIN GLARGINE SOLOSTAR 100 UNITS/ML 3 ML PEN SC SCH (21:05)
[2020-04-25 00:24] LABS: Hematocrit (blood only) 25.8 % (42-52); Hemoglobin 8.8 g/dL (14.0-18.0); Immature Granulocytes # (auto) 0.07 K/uL (0.00-0.02); Immature Granulocytes % (auto) 0.6 %; Lymphocytes # (auto) 1.11 K/uL (1.2-3.4); Lymphocytes % (auto) 9.9 %; Mean Corpuscular Hemoglobin 29.2 pg (25-34); Mean Corpuscular Hgb Conc 34.1 g/dL (32-36); Mean Corpuscular Volume 85.7 fL (80-100); Mean Platelet Volume 7.8 fL (7.4-10.4); Monocytes # (auto) 1.26 K/uL (0.11-0.59); Monocytes % (auto) 11.3 %; Neutrophils # (auto) 8.74 K/uL (1.4-6.5); Neutrophils % (auto) 78.2 %; Platelet Count 228 K/uL (130-400); RDW Standard Deviation 43.7 fL (36.4-46.3); Red Blood Count 3.01 M/uL (4.7-6.1); White Blood Count 11.18 K/uL (4.8-10.8)
[2020-04-25] MEDS: PIPERACILLIN/TAZOBACTAM 3.375 GM in DEXTROSE 5% 100 ML IV SCH ×3 (01:31→17:25)
--- NOTE | 2020-04-25 06:10 | Surgery Progress Note ---
Date of Service April 25, 2020 Assessment & Plan (1) Acute blood loss anemia: Status post laparoscopic cholecystectomy with postoperative bleeding Patient appears to be much more stable, his H&H is stable His urine output is very good He says he is passing flatus, tolerating clear liquids Advance diet to full liquids and then regular DC Duran catheter Transfer patient to regular nursing floor Some concern of patient developing an ileus will need 1-2 additional days in hospital Admission and Anticipated Discharge Date Admission Date: April 21, 2020 Results & Data ([facility]) Vital Signs (Past 12 Hours) Vital Signs Temp Pulse Resp BP Pulse Ox 04/25/20 05:00 89 17 91 04/25/20 04:30 99 H 17 91 04/25/20 04:00 37 C 91 H 16 130/83 91 04/25/20 03:30 96 H 18 92 04/25/20 03:00 94 H 20 123/85 91 04/25/20 02:30 94 H 18 96 04/25/20 02:00 88 16 134/76 98 04/25/20 01:30 90 16 96 04/25/20 01:00 91 H 18 108/61 96 04/25/20 00:30 90 17 97 04/25/20 00:00 37 C 94 H 21 115/71 97 04/24/20 23:30 97 H 16 97 04/24/20 23:00 98 H 18 114/71 96 04/24/20 22:30 101 H 24 96 04/24/20 22:00 103 H 22 124/81 93 04/24/20 21:30 97 H 17 96 04/24/20 21:00 100 H 23 122/75 98 04/24/20 20:30 106 H 21 93 04/24/20 20:00 36.8 C 104 H 22 114/72 93 04/24/20 19:30 97 H 17 93 04/24/20 19:00 95 H 18 117/73 93 04/24/20 18:30 95 H 15 92 04/24/20 18:24 94 H 16 111/73 92 PG Care Time/CCT Total # of Minutes Spent Total Time Spent with Patient: Total time spent is greater than 50% in coordination of care (as documented) at patient's floor/unit and/or counseling patient: Coding Level of Care Code None Diagnoses Acute blood loss anemia D62
[2020-04-25 07:10] LABS: Hematocrit (blood only) 27.1 % (42-52); Hemoglobin 9.2 g/dL (14.0-18.0); Immature Granulocytes % (auto) 0.8 %; Lymphocytes # (auto) 1.03 K/uL (1.2-3.4); Lymphocytes % (auto) 10.1 %; Mean Corpuscular Hemoglobin 29.1 pg (25-34); Mean Corpuscular Hgb Conc 33.9 g/dL (32-36); Mean Corpuscular Volume 85.8 fL (80-100); Mean Platelet Volume 8.3 fL (7.4-10.4); Monocytes % (auto) 9.8 %; Neutrophils # (auto) 8.12 K/uL (1.4-6.5); Neutrophils % (auto) 79.3 %; Platelet Count 280 K/uL (130-400); RDW Coefficient of Variation 13.9 % (11.5-14.5); RDW Standard Deviation 43.9 fL (36.4-46.3); Red Blood Count 3.16 M/uL (4.7-6.1); White Blood Count 10.23 K/uL (4.8-10.8)
[2020-04-25 07:11] LABS: Immature Granulocytes # (auto) 0.08 K/uL (0.00-0.02)
[2020-04-25 07:42] LABS: Albumin Level 3.6 gm/dl (3.4-5.0); BUN Creatinine Ratio 4.5 (10-20); Calcium 8.8 mg/dl (8.5-10.1); Creatinine Clr Calc Pharmacy 48.9 ml/min; Est GFR (African American) 50.1; Est GFR (Non-African American) 43.2; Magnesium 2.2 mg/dl (1.8-2.4); Potassium 3.5 mmol/L (3.5-5.1)
--- NOTE | 2020-04-25 07:43 | Critical Care Progress Note ---
Date of Service April 25, 2020 Assessment & Plan (1) Acute blood loss anemia: (2) Status post laparoscopic cholecystectomy: (3) Cholecystitis: Impression: 49-year-old male presenting with acute cholecystitis status post laparoscopic cholecystectomy. He received 2 units of packed cells yes terday with stable hemoglobin and amount. Recommendations: 1. Acute postoperative blood loss anemia: Suspect intra-abdominal source given the patient's physical exam. Coagulation panels were normal. Surgery is evaluated the patient and continues to follow. No indication for repeat imaging or additional surgical intervention currently. Okay to transfer to the floor. We will sign off from a critical care perspective. 2. Cholecystitis/pancreatitis: Gallstone related. Labs are normal. Could consider repeat imaging if fails to improve. Currently on Zosyn and will continue for now 3. Leukocytosis: Resolved 4. Renal insufficiency: Patient presented with serum creatinine of 2.55 and is currently at 1.79. Kidney function appears improving. Urinalysis did show 1+ protein as well as 1+ blood and outpatient nephrology evaluation is recommended given his diabetes 5. Diabetes: Continue ICU glycemic protocol. 6. Hypertension: Holding antihypertensives currently. Blood pressures are currently acceptable. Patient's been transferred to the floor. Critical care will sign off at this point time. Feel free to contact us if we can be of additional assistance Admission and Anticipated Discharge Date Admission Date: April 21, 2020 Subjective Patient seen and examined. EMR reviewed. Discussed with ICU nurse at bedside. Patient states he is feeling better. He is tolerating a diet. He passed a large amount of gas yesterday and states this improved his abdominal pain. He is not nauseous or vomiting. He received 2 units of packed red cells yesterday but is not required any additional transfusions. Review of Systems Review of Systems: All systems reviewed & are unremarkable except as noted in HPI & below Physical Exam Constitutional: WD/WN, vitals as above Neck: trachea midline, no thyromegaly Respiratory: normal respiratory effort, lungs clear to auscultation Cardiovascular: RRR, no murmur, no edema Gastrointestinal (Abdomen): Inspection/Auscultation: normal bowel sounds and + abdominal surgical scar; abdomen not distended, no abdominal wall ecchymosis and Rogers-Vanegas sign absent Percussion/Palpation: no guarding and abdomen not firm Musculoskeletal: Extremities: extremities normal to inspection Skin: no rashes, warm and dry Lymphatic: no cervical lymphadenopathy Results & Data Results & Data ([facility]) Vital Signs (Past 12 Hours) Vital Signs Temp Pulse Resp BP Pulse Ox 04/25/20 06:00 97 H 22 128/86 92 04/25/20 05:30 97 H 19 91 04/25/20 05:00 89 17 91 04/25/20 04:30 99 H 17 91 04/25/20 04:00 37 C 91 H 16 130/83 91 04/25/20 03:30 96 H 18 92 04/25/20 03:00 94 H 20 123/85 91 04/25/20 02:30 94 H 18 96 04/25/20 02:00 88 16 134/76 98 04/25/20 01:30 90 16 96 04/25/20 01:00 91 H 18 108/61 96 04/25/20 00:30 90 17 97 04/25/20 00:00 37 C 94 H 21 115/71 97 04/24/20 23:30 97 H 16 97 04/24/20 23:00 98 H 18 114/71 96 04/24/20 22:30 101 H 24 96 04/24/20 22:00 103 H 22 124/81 93 04/24/20 21:30 97 H 17 96 04/24/20 21:00 100 H 23 122/75 98 04/24/20 20:30 106 H 21 93 04/24/20 20:00 36.8 C 104 H 22 114/72 93 Laboratory Results 04/25/20 06:16 Diagnostic Findings No new imaging Coding Level of Care Code 09928 Subseq Hosp Care Lvl 2 Diagnoses Acute blood loss anemia D62 Status post laparoscopic cholecystectomy Z90.49 Cholecystitis K81.9
[2020-04-25 07:46] LABS: Albumin Globulin Ratio 1.3 (0.9-2); Bilirubin,Total 0.9 mg/dl (0.2-1); Globulin 2.8 gm/dl (2.5-4.0); Phosphorus 2.2 mg/dl (2.5-4.9); Total Protein 6.4 gm/dl (6.4-8.2)
[2020-04-25] MEDS: INSULIN ASPART 100 UNITS/ML 3 ML PEN SC SCH ×4 (09:25→20:59)
[2020-04-25] MEDS: SODIUM CHLORIDE 0.9% 1000ML 1,000 ML IV SCH (09:26)
[2020-04-25] MEDS: DOCUSATE SODIUM/SENNA 50/8.6MG TAB PO SCH ×2 (09:28→20:48)
[2020-04-25] MEDS: MAGNESIUM HYDROXIDE SUSP 30 ML UDC PO SCH ×4 (09:32→20:47)
[2020-04-25] MEDS: LIDOCAINE 5% 1 PATCH TD SCH (09:32)
[2020-04-25] MEDS: HYDROCODONE/ACETAMOPHEN 5/325MG TAB PO PRN ×2 (11:25→17:34)
--- NOTE | 2020-04-25 19:20 | Hospitalist Progress Note ---
Date of Service April 25, 2020 Assessment & Plan (1) Acute blood loss anemia: Pt had increased post operative abdominal pain and noted to have a 4.5 gm drop in hgb, pt was assesed by surgery overnight and is currenlty ordered 2 u prbc, blood pressures are still low and pt is in ICu. He is making urine and his CKD3 is stable at this point (2) Cholecystitis: * Acute cholecystitis/pancreatitis/transaminitis- concerning for gallstone pancreatitis * CT with abnormal appearing GB. * MRCP normal without GB thickening seen on CT * OR 04/23/10 * Continue Zosyn * Lipase trending down * Continue ivf resuscitation * LFTs improving * Continue Pepcid IV BID (3) Pancreatitis: * See above * Lipase trending down, currently 756 (4) Transaminitis: * secondary to cholecystitis, improving (5) Renal insufficiency: * Renal insufficiency- seems to have CKD3 * Holding lisinopril * Patient had been taking meloxicam, diclofenac, and ibuprofen prior to admission * Avoid nephrotoxic medications, renally dose medications when able (6) Diabetes mellitus: * Hold glimepiride * Hold Metformin, and do not resume unless GFR is improved * Placed on Accu-Cheks before meals and at bedtime/every 6 hours with NovoLog coverage per scale * A1c pending * BSGs 87-123 during admission DVT Prophylaxis SCDs Chemoproph held for OR Dispo: NPO for OR later this morning with Dr. Miller Admission and Anticipated Discharge Date Admission Date: April 21, 2020 Subjective Patient seen and examined. EMR reviewed. Discussed with ICU nurse at bedside. Patient states he is feeling better. He is tolerating a diet. He passed a large amount of gas yesterday and states this improved his abdominal pain. He is not nauseous or vomiting. He received 2 units of packed red cells yesterday but is not required any additional transfusions. Review of Systems Review of Systems: Mild distress and fatigue no headache, blurry or double vision no speech or swallowing issues no chest pain, pressure or palpitations no shortness of breath, cough or wheezes Generalized mild abdominal pain, without nausea or vomiting no dysuria, hematuria or frequency no focal joint pain or swelling no back pain, CVA tenderness or radicular pain no bruising, bleeding or rashes no focal signs of weakness or numbness or altered sensation no complaints of anxiety or depression.. Physical Exam Physical Exam: The patient appeared well nourished and normally developed. Vital signs as documented. Head exam is normocephalic atraumatic no scleral icterus Neck is without JVD, thyromegaly, or carotid bruits. Lungs are clear to auscultation, no focal loss of breath sounds Cardiac exam, Rhythm is regular.. No murmurs, rubs or gallops. Abdominal exam reveals hypoactive bowel sounds diffusely tender no rebound or guarding Extremities are nonedematous and both pedal pulses are present Neurologic exam is alert and oriented, no focal loss of strength or sensation Skin is without bruises or rashes appears pale but is receiving transfusion Psychologically is without concerns for anxiety or depression Results & Data Results & Data ([facility]) Vital Signs (Past 12 Hours) Vital Signs Temp Pulse Pulse Resp BP BP Pulse Ox 04/25/20 15:25 98.2 F 86 16 137/85 93 04/25/20 11:28 97.9 F 94 H 16 137/80 96 04/25/20 09:30 106 H 23 04/25/20 09:00 102 H 18 04/25/20 08:41 115 H 27 H 04/25/20 08:04 98.4 F 117 H 20 95 04/25/20 07:55 97 H 04/25/20 07:30 91 H 17 92 PG Care Time/CCT Total # of Minutes Spent Total Time Spent with Patient: Total time spent is greater than 50% in coordination of care (as documented) at patient's floor/unit and/or counseling patient: Coding Level of Care Code 49432 Subseq Hosp Care Lvl 2 Diagnoses Acute blood loss anemia D62 Cholecystitis K81.9 Pancreatitis K85.90 Transaminitis R74.01 Renal insufficiency N28.9 Diabetes mellitus E11.9
[2020-04-25] MEDS: carBAMazepine 200 MG TABLET PO SCH (20:48)
[2020-04-25] MEDS: FAMOTIDINE 20 MG in SYRINGE 3 ML IV SCH (20:49)
[2020-04-25] MEDS: INSULIN GLARGINE SOLOSTAR 100 UNITS/ML 3 ML PEN SC SCH (20:58)
[2020-04-26] MEDS: PIPERACILLIN/TAZOBACTAM 3.375 GM in DEXTROSE 5% 100 ML IV SCH ×3 (01:28→17:23)
[2020-04-26] MEDS: HYDROmorphone INJ 1 MG/ML SYRINGE IV PRN (01:30)
[2020-04-26] MEDS: SODIUM CHLORIDE 0.9% 1000ML 1,000 ML IV SCH ×2 (04:23→22:59)
[2020-04-26 06:02] LABS: Hemoglobin 9.5 g/dL (14.0-18.0); Immature Granulocytes # (auto) 0.07 K/uL (0.00-0.02); Immature Granulocytes % (auto) 0.7 %; Lymphocytes # (auto) 1.04 K/uL (1.2-3.4); Lymphocytes % (auto) 10.9 %; Mean Corpuscular Hemoglobin 29.2 pg (25-34); Mean Corpuscular Hgb Conc 33.9 g/dL (32-36); Mean Corpuscular Volume 86.2 fL (80-100); Monocytes # (auto) 1.13 K/uL (0.11-0.59); Monocytes % (auto) 11.9 %; Neutrophils # (auto) 7.28 K/uL (1.4-6.5); Neutrophils % (auto) 76.5 %; Platelet Count 309 K/uL (130-400); RDW Coefficient of Variation 13.8 % (11.5-14.5); RDW Standard Deviation 43.9 fL (36.4-46.3); Red Blood Count 3.25 M/uL (4.7-6.1); White Blood Count 9.52 K/uL (4.8-10.8)
[2020-04-26 06:31] LABS: Albumin Level 3.5 gm/dl (3.4-5.0); BUN Creatinine Ratio 3.6 (10-20); Calcium 8.6 mg/dl (8.5-10.1); Creatinine Clr Calc Pharmacy 53.7 ml/min; Est GFR (African American) 56.1; Est GFR (Non-African American) 48.4; Magnesium 2.5 mg/dl (1.8-2.4); Potassium 3.4 mmol/L (3.5-5.1)
[2020-04-26 06:34] LABS: Albumin Globulin Ratio 1.2 (0.9-2); Bilirubin,Total 0.7 mg/dl (0.2-1); Globulin 2.9 gm/dl (2.5-4.0); Total Protein 6.4 gm/dl (6.4-8.2)
[2020-04-26] MEDS: MAGNESIUM HYDROXIDE SUSP 30 ML UDC PO SCH ×4 (08:13→20:11)
[2020-04-26] MEDS: LIDOCAINE 5% 1 PATCH TD SCH (08:14)
[2020-04-26] MEDS: DOCUSATE SODIUM/SENNA 50/8.6MG TAB PO SCH ×2 (08:17→20:13)
[2020-04-26] MEDS ORDERED: POTASSIUM PHOS 3 MMOL/1 ML INFUSION IV STA (08:32)
[2020-04-26] MEDS: INSULIN ASPART 100 UNITS/ML 3 ML PEN SC SCH ×4 (08:36→21:01)
[2020-04-26] MEDS ORDERED: POTASSIUM PHOSPHATE 21 MMOL in SODIUM CHLORIDE 0.9% 500 ML IV STA (08:41)
--- NOTE | 2020-04-26 10:46 | Surgery Progress Note ---
Date of Service April 26, 2020 Assessment & Plan (1) Status post laparoscopic cholecystectomy: Postoperative day #3 status post laparoscopic cholecystectomy. It was felt that he may have developed some postoperative bleeding. His H&H is now remaining stable. His white blood cell count is normal. His peristalsis has returned and he is tolerating a regular diet Would increase activity Admission and Anticipated Discharge Date Admission Date: April 21, 2020 Subjective Postoperative day #3 status post laparoscopic cholecystectomy. Has mild mostly incisional discomfort Was tolerating a regular diet Had to strain for a bowel movement and had some dry heaves after that but that nausea has resolved No melena or hematochezia Physical Exam Gastrointestinal (Abdomen): Inspection/Auscultation: normal bowel sounds and + abdominal surgical incision (All are clean, dry and intact); abdomen not distended Percussion/Palpation: + abdomen tender (Minimal incisional) and abdomen soft Results & Data ([facility]) Vital Signs (Past 12 Hours) Vital Signs Temp Pulse Resp BP Pulse Ox 04/26/20 07:50 36.7 C 91 H 14 132/82 93 Laboratory Results 04/26/20 04/26/20 04/26/20 Range/Units 08:05 05:40 05:40 WBC 9.52 (4.8-10.8) K/uL RBC 3.25 L (4.7-6.1) M/uL Hgb 9.5 L (14.0-18.0) g/dL Hct 28.0 L (42-52) % MCV 86.2 (80-100) fL MCH 29.2 (25-34) pg MCHC 33.9 (32-36) g/dL RDW Std Deviation 43.9 (36.4-46.3) fL RDW Coeff of Rani 13.8 (11.5-14.5) % Plt Count 309 (130-400) K/uL MPV 8.0 (7.4-10.4) fL Immature Gran % (Auto) 0.7 % Neut % (Auto) 76.5 % Lymph % (Auto) 10.9 % [place] % (Auto) 11.9 % Eos % (Auto) 0.0 % Baso % (Auto) 0.0 % Neut # (Auto) 7.28 H (1.4-6.5) K/uL Lymph # (Auto) 1.04 L (1.2-3.4) K/uL [place] # (Auto) 1.13 H (0.11-0.59) K/uL Eos # (Auto) 0.00 (0-0.5) K/uL Baso # (Auto) 0.00 (0-0.2) K/uL Immature Gran # (Auto) 0.07 H (0.00-0.02) K/uL Sodium 139 (136-145) mmol/L Potassium 3.4 L (3.5-5.1) mmol/L Chloride 108 H (98-107) mmol/L Carbon Dioxide 27 (21-32) mmol/L Anion Gap 4.0 (3-11) BUN 6 L (7-18) mg/dl Creatinine 1.63 H (0.6-1.4) mg/dl Est Cr Clr Drug Dosing 53.7 ml/min Est GFR ( Amer) 56.1 Est GFR (Non-Af Amer) 48.4 BUN/Creatinine Ratio 3.6 L (10-20) Glucose 113 H (70-99) mg/dl POC Glucose 119 H (70-99) mg/dl Calcium 8.6 (8.5-10.1) mg/dl Phosphorus 2.0 L (2.5-4.9) mg/dl Magnesium 2.5 H (1.8-2.4) mg/dl Total Bilirubin 0.7 (0.2-1) mg/dl AST 25 (15-37) U/L ALT 53 (12-78) U/L Alkaline Phosphatase 109 (45-117) U/L Total Protein 6.4 (6.4-8.2) gm/dl Albumin 3.5 (3.4-5.0) gm/dl Globulin 2.9 (2.5-4.0) gm/dl Albumin/Globulin Ratio 1.2 (0.9-2) 04/25/20 04/25/20 04/25/20 Range/Units 20:56 17:15 11:31 WBC (4.8-10.8) K/uL RBC (4.7-6.1) M/uL Hgb (14.0-18.0) g/dL Hct (42-52) % MCV (80-100) fL MCH (25-34) pg MCHC (32-36) g/dL RDW Std Deviation (36.4-46.3) fL RDW Coeff of Rani (11.5-14.5) % Plt Count (130-400) K/uL MPV (7.4-10.4) fL Immature Gran % (Auto) % Neut % (Auto) % Lymph % (Auto) % [place] % (Auto) % Eos % (Auto) % Baso % (Auto) % Neut # (Auto) (1.4-6.5) K/uL Lymph # (Auto) (1.2-3.4) K/uL [place] # (Auto) (0.11-0.59) K/uL Eos # (Auto) (0-0.5) K/uL Baso # (Auto) (0-0.2) K/uL Immature Gran # (Auto) (0.00-0.02) K/uL Sodium (136-145) mmol/L Potassium (3.5-5.1) mmol/L Chloride (98-107) mmol/L Carbon Dioxide (21-32) mmol/L Anion Gap (3-11) BUN (7-18) mg/dl Creatinine (0.6-1.4) mg/dl Est Cr Clr Drug Dosing ml/min Est GFR ( Amer) Est GFR (Non-Af Amer) BUN/Creatinine Ratio (10-20) Glucose (70-99) mg/dl POC Glucose 120 H 116 H 98 (70-99) mg/dl Calcium (8.5-10.1) mg/dl Phosphorus (2.5-4.9) mg/dl Magnesium (1.8-2.4) mg/dl Total Bilirubin (0.2-1) mg/dl AST (15-37) U/L ALT (12-78) U/L Alkaline Phosphatase (45-117) U/L Total Protein (6.4-8.2) gm/dl Albumin (3.4-5.0) gm/dl Globulin (2.5-4.0) gm/dl Albumin/Globulin Ratio (0.9-2)
--- NOTE | 2020-04-26 14:15 | Pharmacy Report ---
Pharmacy Glycemic Short Note 2 - Date of Service April 26, 2020 - Glycemic Short BSG Results (Last 24 hours): 04/25/20 04/25/20 04/26/20 17:15 20:56 05:40 Glucose 113 H POC Glucose 116 H 120 H 04/26/20 04/26/20 08:05 12:11 Glucose POC Glucose 119 H 143 H OUTPATIENT ANTIDIABETIC REGIMEN: * metformin 1 gm PO BIDM * Amaryl 1 mg daily * HbA1c: 7% (04/23/20) ASSESSMENT: 04/26 * POD #3 s/p laparoscopic cholecystectomy * BSGs have been very well controlled over past 48 hours * Patient did not receive any insulin yesterday * Will maintain currently ordered Novolog and Lantus scale 04/24 * Patient transferred to ICU this AM for post-op hemorrhage * BSG's have been good, but one BSG below goal at noon today. Etiology is likely 2nd Lantus as patient has not received any Novolog since yesterday. Will reduce Lantus dose for this evening 04/22 * Patient admitted with gallstones and currently NPO. T2DM on two oral medications with unknown control. HbA1C ordered. * Start Novolog weight-based stress 2. * Lantus scale for this evening if BSGs trend upwards. PLAN FOR INPATIENT GLYCEMIC CONTROL: * Hold outpatient oral diabetes medications * Basal insulin - no change * Lantus SQ HS * Lantus 0 units if BSG < 140 mg/dL * Lantus 5 units if BSG >= 140 mg/dL * Bolus insulin - no change * NovoLog per scale ACHS or Q6hrs while NPO * Goal Range: Low 110 mg/dL - High 140 mg/dL * Correction Factor: 30 mg/dL/unit * Nutritional / Prandial insulin per carb ratio of 1 unit per 9 grams CHO consumed PLAN FOR DISCHARGE: * Current HbA1c of 7% demonstrates reasonable outpatient glycemic control * Could consider increasing glimepiride to 2 mg PO daily to target HbA1c < 7%
--- NOTE | 2020-04-26 15:37 | Hospitalist Progress Note ---
Date of Service April 26, 2020 Assessment & Plan (1) Acute blood loss anemia: Pt had increased post operative abdominal pain and noted to have a 4.5 gm drop in hgb, pt was assesed by surgery overnight and is currenlty ordered 2 u prbc, blood pressures are still low and pt is in ICu. He is making urine and his CKD3 is stable at this point (2) Cholecystitis: * Acute cholecystitis/pancreatitis/transaminitis- concerning for gallstone pancreatitis * CT with abnormal appearing GB. * MRCP normal without GB thickening seen on CT * OR 04/23/10 * Continue Zosyn * Lipase trending down * Continue ivf resuscitation * LFTs improving * Continue Pepcid IV BID (3) Pancreatitis: * See above * Lipase trending down, currently 756 (4) Transaminitis: * secondary to cholecystitis, improving (5) Renal insufficiency: * Renal insufficiency- seems to have CKD3 * Holding lisinopril * Patient had been taking meloxicam, diclofenac, and ibuprofen prior to admission * Avoid nephrotoxic medications, renally dose medications when able (6) Diabetes mellitus: * Hold glimepiride * Hold Metformin, and do not resume unless GFR is improved * Placed on Accu-Cheks before meals and at bedtime/every 6 hours with NovoLog coverage per scale * A1c pending * BSGs 87-123 during admission DVT Prophylaxis SCDs Chemoproph held for OR Dispo: NPO for OR later this morning with Dr. Miller Admission and Anticipated Discharge Date Admission Date: April 21, 2020 Subjective Postoperative status post laparoscopic cholecystectomy. Has mild mostly incisional discomfort Review of Systems Review of Systems: Mild distress and fatigue no headache, blurry or double vision no speech or swallowing issues no chest pain, pressure or palpitations no shortness of breath, cough or wheezes Generalized mild abdominal pain, without nausea or vomiting no dysuria, hematuria or frequency no focal joint pain or swelling no back pain, CVA tenderness or radicular pain no bruising, bleeding or rashes no focal signs of weakness or numbness or altered sensation no complaints of anxiety or depression.. Physical Exam Physical Exam: The patient appeared well nourished and normally developed. Vital signs as documented. Head exam is normocephalic atraumatic no scleral icterus Neck is without JVD, thyromegaly, or carotid bruits. Lungs are clear to auscultation, no focal loss of breath sounds Cardiac exam, Rhythm is regular.. No murmurs, rubs or gallops. Abdominal exam reveals hypoactive bowel sounds diffusely tender no rebound or guarding Extremities are nonedematous and both pedal pulses are present Neurologic exam is alert and oriented, no focal loss of strength or sensation Skin is without bruises or rashes appears pale but is receiving transfusion Psychologically is without concerns for anxiety or depression Results & Data Results & Data ([facility]) Vital Signs (Past 12 Hours) Vital Signs Temp Pulse Resp BP Pulse Ox 04/26/20 14:00 98.2 F 95 H 18 157/90 H 95 04/26/20 07:50 98.1 F 91 H 14 132/82 93 PG Care Time/CCT Total # of Minutes Spent Total Time Spent with Patient: Total time spent is greater than 50% in coordination of care (as documented) at patient's floor/unit and/or counseling patient: Coding Level of Care Code 71236 Subseq Hosp Care Lvl 2 Diagnoses Acute blood loss anemia D62 Cholecystitis K81.9 Pancreatitis K85.90 Transaminitis R74.01 Renal insufficiency N28.9 Diabetes mellitus E11.9
[2020-04-26] MEDS: carBAMazepine 200 MG TABLET PO SCH (20:10)
[2020-04-26] MEDS: FAMOTIDINE 20 MG in SYRINGE 3 ML IV SCH (20:11)
[2020-04-26] MEDS: INSULIN GLARGINE SOLOSTAR 100 UNITS/ML 3 ML PEN SC SCH (21:01)
[2020-04-27] MEDS: PIPERACILLIN/TAZOBACTAM 3.375 GM in DEXTROSE 5% 100 ML IV SCH ×3 (01:59→17:54)
[2020-04-27 06:51] LABS: Creatinine Clr Calc Pharmacy 63.8 ml/min; Est GFR (African American) 69.2; Est GFR (Non-African American) 59.7
[2020-04-27] MEDS: LIDOCAINE 5% 1 PATCH TD SCH (07:57)
[2020-04-27] MEDS: MAGNESIUM HYDROXIDE SUSP 30 ML UDC PO SCH ×4 (07:58→20:12)
[2020-04-27] MEDS: DOCUSATE SODIUM/SENNA 50/8.6MG TAB PO SCH ×2 (08:02→20:12)
--- NOTE | 2020-04-27 08:14 | Hospitalist Progress Note ---
Date of Service April 27, 2020 Assessment & Plan (1) Cholecystitis: * Acute cholecystitis/pancreatitis/transaminitis- concerning for gallstone pancreatitis * CT with abnormal appearing GB. * MRCP normal without GB thickening seen on CT * POD #4 s/p sissy browne with Dr. Miller on 04/23/10 * Post-operative acute blood loss anemia likely exacerbated by increased NSAID use [employer] * s/p 2 unit PRBC and blood counts stable * Continued Zosyn (day 5 of therapy). WBC wnl 9.6k from 19.6k, afebrile * Lipase trended down, resolved * Continue IVF for now but d/c this afternoon * Continue Pepcid IV BID and consider PPI at d/c given possible ulceration/bleeding from increased NSAID use [employer] * Electrolyte replacement of K and phos * Repeat labs in AM and possible d/c back to [facility] if stable -- of note, patient would like copy of chart to be available at discharge for him to look at back at the [facility] (2) Acute blood loss anemia: * Pt had increased post operative abdominal pain and noted to have a 4.5 gm drop in hgb and was transferred to ICU * Got 2 u PRBC and blood counts stabilized, currently 9.3/27.3 from 9.5 but continues on IVF * Encouraged PO intake and will d/c IVF this afternoon * CKD 3 and making good urine * Transferred back to medical floor and remains stable (3) Pancreatitis: * See above * Lipase trended down, resolved. likely 2nd to stone (4) Transaminitis: * secondary to cholecystitis, resolved (5) Renal insufficiency: * Renal insufficiency- seems to have CKD3 * Holding lisinopril for Cr 1.5 but improved from 2.5 on admission, unclear baseline * Patient had been taking meloxicam, diclofenac, and ibuprofen prior to admission * Avoid nephrotoxic medications, renally dose medications when able * Consider holding metformin and glimepiride at d/c until back to baseline * BMP in AM (6) Hypertension: * BPs elevated 146/91 -- denies pain * Remains on IVF -- to be d/c this afternoon * Holding lisinopril for CELESTE (on for renal protection given DM per patient) * Utilizing amlodipine 5mg daily -- starting today -- consider continuing at d/c if needing to continue to hold his lisinopril. * Continue to monitor (7) Diabetes mellitus: * Hold glimepiride * Hold Metformin, and do not resume unless GFR is improved * Placed on Accu-Cheks before meals and at bedtime/every 6 hours with NovoLog coverage per scale * A1c pending * BSGs 87-123 during admission Hypokalemia/Hypophosphatemia * Potassium Low at 3.2- 3.4. Mag wnl 2.4 * Phos Low at 2.1 from 2.0 * IV replacement with Kphos 21mmol * Repeat labs in AM DVT Prophylaxis * SCDs * Chemoproph held for OR and utilized Lovenox SQ following -- discontinued given post-op bleeding as above requiring IVF and PRBC and transfer to ICU * Ambulation encouraged Dispo: d/c tomorrow likely Admission and Anticipated Discharge Date Admission Date: April 21, 2020 Subjective Patient evaluated this morning. No abdominal pain or nausea reported. Having some loose stools but decreased. No fever, chills, chest pain, shortness of breath reported. Discussed replacing his potassium and phosphorus. Patient inquiring about medications at discharge -- pending am labs may need to continue to hold his diabetic medications for short term and have repeat labs prior to resuming. Discussed adding amlodipine for now for BP control until his lisinopril can be resumed safely. To continue to avoid NSAIDs -- discussed at length. Questions/concerns addressed at this time. Hopeful for discharge tomorrow morning if labs stable. Review of Systems Review of Systems: All systems reviewed & are unremarkable except as noted in HPI & below Physical Exam Constitutional: WD/WN, vitals as above + obese, cooperative and comfortable; no acute distress Eyes: + anicteric sclerae and PERRL ENMT: Ears: no hearing impairment Neck: normal visual inspection and trachea midline Respiratory: normal respiratory effort, lungs clear to auscultation Cardiovascular: RRR, no murmur, no edema Gastrointestinal (Abdomen): normal bowel sounds, soft, nontender, no hepatosplenomegaly (surgical incisions c/d/i with glue) Percussion/Palpation: no guarding and abdomen not rigid Musculoskeletal: no cyanosis or clubbing, extremities motor strength 5/5 Skin: warm, dry surgical incisions c/d/i no drainage Neurologic: PERRL, EOMI, accommodation nl, no face palsy, no dysarthria Psychiatric: Orientation: alert and oriented x 3 Genitourinary: no lal Lymphatic: no cervical or axillary lymphadenopathy Results & Data Results & Data ([facility]) Vital Signs (Past 12 Hours) Vital Signs Temp Pulse Pulse Resp BP Pulse Ox 04/27/20 07:53 36.6 C 85 18 146/91 H 96 04/26/20 22:49 36.9 C 92 H 18 152/76 H 96 Laboratory Results 04/27/20 04/27/20 04/27/20 Range/Units 07:59 05:39 05:39 WBC 9.69 (4.8-10.8) K/uL RBC 3.16 L (4.7-6.1) M/uL Hgb 9.3 L (14.0-18.0) g/dL Hct 27.3 L (42-52) % MCV 86.4 (80-100) fL MCH 29.4 (25-34) pg MCHC 34.1 (32-36) g/dL RDW Std Deviation 43.4 (36.4-46.3) fL RDW Coeff of Rani 13.7 (11.5-14.5) % Plt Count 327 (130-400) K/uL MPV 8.4 (7.4-10.4) fL Sodium 139 (136-145) mmol/L Potassium 3.2 L (3.5-5.1) mmol/L Chloride 107 (98-107) mmol/L Carbon Dioxide 24 (21-32) mmol/L Anion Gap 7.0 (3-11) BUN 8 (7-18) mg/dl Creatinine 1.52 H (0.6-1.4) mg/dl Est Cr Clr Drug Dosing 57.5 ml/min Est GFR ( Amer) 61.0 Est GFR (Non-Af Amer) 52.7 BUN/Creatinine Ratio 5.1 L (10-20) Glucose 106 H (70-99) mg/dl POC Glucose 120 H (70-99) mg/dl Calcium 8.4 L (8.5-10.1) mg/dl Phosphorus 2.1 L (2.5-4.9) mg/dl Magnesium 2.4 (1.8-2.4) mg/dl 04/27/20 04/26/20 04/26/20 Range/Units 05:36 20:43 17:10 WBC (4.8-10.8) K/uL RBC (4.7-6.1) M/uL Hgb (14.0-18.0) g/dL Hct (42-52) % MCV (80-100) fL MCH (25-34) pg MCHC (32-36) g/dL RDW Std Deviation (36.4-46.3) fL RDW Coeff of Rani (11.5-14.5) % Plt Count (130-400) K/uL MPV (7.4-10.4) fL Sodium (136-145) mmol/L Potassium (3.5-5.1) mmol/L Chloride (98-107) mmol/L Carbon Dioxide (21-32) mmol/L Anion Gap (3-11) BUN (7-18) mg/dl Creatinine 1.37 (0.6-1.4) mg/dl Est Cr Clr Drug Dosing 63.8 ml/min Est GFR ( Amer) 69.2 Est GFR (Non-Af Amer) 59.7 BUN/Creatinine Ratio (10-20) Glucose (70-99) mg/dl POC Glucose 117 H 117 H (70-99) mg/dl Calcium (8.5-10.1) mg/dl Phosphorus (2.5-4.9) mg/dl Magnesium (1.8-2.4) mg/dl 04/26/20 Range/Units 12:11 WBC (4.8-10.8) K/uL RBC (4.7-6.1) M/uL Hgb (14.0-18.0) g/dL Hct (42-52) % MCV (80-100) fL MCH (25-34) pg MCHC (32-36) g/dL RDW Std Deviation (36.4-46.3) fL RDW Coeff of Rani (11.5-14.5) % Plt Count (130-400) K/uL MPV (7.4-10.4) fL Sodium (136-145) mmol/L Potassium (3.5-5.1) mmol/L Chloride (98-107) mmol/L Carbon Dioxide (21-32) mmol/L Anion Gap (3-11) BUN (7-18) mg/dl Creatinine (0.6-1.4) mg/dl Est Cr Clr Drug Dosing ml/min Est GFR ( Amer) Est GFR (Non-Af Amer) BUN/Creatinine Ratio (10-20) Glucose (70-99) mg/dl POC Glucose 143 H (70-99) mg/dl Calcium (8.5-10.1) mg/dl Phosphorus (2.5-4.9) mg/dl Magnesium (1.8-2.4) mg/dl PG Care Time/CCT Total # of Minutes Spent Total Time Spent with Patient: Total time spent is greater than 50% in coordination of care (as documented) at patient's floor/unit and/or counseling patient: Coding Level of Care Code 93171 Subseq Hosp Care Lvl 3 Diagnoses Cholecystitis K81.9 Acute blood loss anemia D62 Pancreatitis K85.90 Transaminitis R74.01 Renal insufficiency N28.9 Hypertension I10 Diabetes mellitus E11.9
[2020-04-27 08:17] LABS: Hematocrit (blood only) 27.3 % (42-52); Hemoglobin 9.3 g/dL (14.0-18.0); Mean Corpuscular Hemoglobin 29.4 pg (25-34); Mean Corpuscular Hgb Conc 34.1 g/dL (32-36); Mean Corpuscular Volume 86.4 fL (80-100); Mean Platelet Volume 8.4 fL (7.4-10.4); Platelet Count 327 K/uL (130-400); RDW Coefficient of Variation 13.7 % (11.5-14.5); RDW Standard Deviation 43.4 fL (36.4-46.3); Red Blood Count 3.16 M/uL (4.7-6.1); White Blood Count 9.69 K/uL (4.8-10.8)
[2020-04-27 08:25] LABS: BUN Creatinine Ratio 5.1 (10-20); Calcium 8.4 mg/dl (8.5-10.1); Creatinine Clr Calc Pharmacy 57.5 ml/min; Est GFR (Non-African American) 52.7; Magnesium 2.4 mg/dl (1.8-2.4); Phosphorus 2.1 mg/dl (2.5-4.9); Potassium 3.2 mmol/L (3.5-5.1)
[2020-04-27] MEDS: INSULIN ASPART 100 UNITS/ML 3 ML PEN SC SCH ×4 (08:46→20:42)
[2020-04-27] MEDS ORDERED: POTASSIUM CHLORIDE CRTAB 20 MEQ TABCR PO STA (09:16)
[2020-04-27] MEDS ORDERED: POTASSIUM PHOS 3 MMOL/1 ML INFUSION IV STA (09:18)
[2020-04-27] MEDS ORDERED: POTASSIUM PHOSPHATE 21 MMOL in SODIUM CHLORIDE 0.9% 500 ML IV STA (09:23)
[2020-04-27] MEDS: amLODIPine BESYLATE 5 MG TAB PO SCH (11:32)
--- NOTE | 2020-04-27 15:24 | Surgery Progress Note ---
Date of Service April 27, 2020 Assessment & Plan (1) Status post laparoscopic cholecystectomy: Postoperative day #4 status post laparoscopic cholecystectomy Developed some bleeding but that has ceased. H&H is stable Abdomen is benign Tolerating diet Discharge is planned for tomorrow probably. Admission and Anticipated Discharge Date Admission Date: April 21, 2020 Subjective Postoperative day #4 status post laparoscopic cholecystectomy Having no pain at present Tolerated regular diet Denies nausea and vomiting Physical Exam Gastrointestinal (Abdomen): Inspection/Auscultation: normal bowel sounds and + abdominal surgical incision (All are clean, dry and intact); abdomen not distended Percussion/Palpation: + abdomen tender (Minimal incisional) and abdomen soft Results & Data ([facility]) Vital Signs (Past 12 Hours) Vital Signs Temp Pulse Resp BP Pulse Ox 04/27/20 14:00 36.7 C 88 16 138/83 95 04/27/20 11:30 90 149/84 H 04/27/20 07:53 36.6 C 85 18 146/91 H 96 Laboratory Results 04/27/20 04/27/20 04/27/20 Range/Units 12:18 07:59 05:39 WBC (4.8-10.8) K/uL RBC (4.7-6.1) M/uL Hgb (14.0-18.0) g/dL Hct (42-52) % MCV (80-100) fL MCH (25-34) pg MCHC (32-36) g/dL RDW Std Deviation (36.4-46.3) fL RDW Coeff of Rani (11.5-14.5) % Plt Count (130-400) K/uL MPV (7.4-10.4) fL Sodium 139 (136-145) mmol/L Potassium 3.2 L (3.5-5.1) mmol/L Chloride 107 (98-107) mmol/L Carbon Dioxide 24 (21-32) mmol/L Anion Gap 7.0 (3-11) BUN 8 (7-18) mg/dl Creatinine 1.52 H (0.6-1.4) mg/dl Est Cr Clr Drug Dosing 57.5 ml/min Est GFR ( Amer) 61.0 Est GFR (Non-Af Amer) 52.7 BUN/Creatinine Ratio 5.1 L (10-20) Glucose 106 H (70-99) mg/dl POC Glucose 114 H 120 H (70-99) mg/dl Calcium 8.4 L (8.5-10.1) mg/dl Phosphorus 2.1 L (2.5-4.9) mg/dl Magnesium 2.4 (1.8-2.4) mg/dl 04/27/20 04/27/20 04/26/20 Range/Units 05:39 05:36 20:43 WBC 9.69 (4.8-10.8) K/uL RBC 3.16 L (4.7-6.1) M/uL Hgb 9.3 L (14.0-18.0) g/dL Hct 27.3 L (42-52) % MCV 86.4 (80-100) fL MCH 29.4 (25-34) pg MCHC 34.1 (32-36) g/dL RDW Std Deviation 43.4 (36.4-46.3) fL RDW Coeff of Rani 13.7 (11.5-14.5) % Plt Count 327 (130-400) K/uL MPV 8.4 (7.4-10.4) fL Sodium (136-145) mmol/L Potassium (3.5-5.1) mmol/L Chloride (98-107) mmol/L Carbon Dioxide (21-32) mmol/L Anion Gap (3-11) BUN (7-18) mg/dl Creatinine 1.37 (0.6-1.4) mg/dl Est Cr Clr Drug Dosing 63.8 ml/min Est GFR ( Amer) 69.2 Est GFR (Non-Af Amer) 59.7 BUN/Creatinine Ratio (10-20) Glucose (70-99) mg/dl POC Glucose 117 H (70-99) mg/dl Calcium (8.5-10.1) mg/dl Phosphorus (2.5-4.9) mg/dl Magnesium (1.8-2.4) mg/dl 04/26/20 Range/Units 17:10 WBC (4.8-10.8) K/uL RBC (4.7-6.1) M/uL Hgb (14.0-18.0) g/dL Hct (42-52) % MCV (80-100) fL MCH (25-34) pg MCHC (32-36) g/dL RDW Std Deviation (36.4-46.3) fL RDW Coeff of Rani (11.5-14.5) % Plt Count (130-400) K/uL MPV (7.4-10.4) fL Sodium (136-145) mmol/L Potassium (3.5-5.1) mmol/L Chloride (98-107) mmol/L Carbon Dioxide (21-32) mmol/L Anion Gap (3-11) BUN (7-18) mg/dl Creatinine (0.6-1.4) mg/dl Est Cr Clr Drug Dosing ml/min Est GFR ( Amer) Est GFR (Non-Af Amer) BUN/Creatinine Ratio (10-20) Glucose (70-99) mg/dl POC Glucose 117 H (70-99) mg/dl Calcium (8.5-10.1) mg/dl Phosphorus (2.5-4.9) mg/dl Magnesium (1.8-2.4) mg/dl
[2020-04-27] MEDS: SODIUM CHLORIDE 0.9% 1000ML 1,000 ML IV SCH (19:38)
[2020-04-27] MEDS: carBAMazepine 200 MG TABLET PO SCH (20:12)
[2020-04-27] MEDS: FAMOTIDINE 20 MG in SYRINGE 3 ML IV SCH (20:13)
[2020-04-27] MEDS: INSULIN GLARGINE SOLOSTAR 100 UNITS/ML 3 ML PEN SC SCH (20:42)
[2020-04-27] MEDS ORDERED: NORTRIPTYLINE HCL 25 MG CAP PO SCH (21:00)
[2020-04-28] MEDS: PIPERACILLIN/TAZOBACTAM 3.375 GM in DEXTROSE 5% 100 ML IV SCH ×2 (01:24→09:32)
[2020-04-28 06:32] LABS: Hematocrit (blood only) 31.9 % (42-52); Hemoglobin 10.6 g/dL (14.0-18.0); Mean Corpuscular Hgb Conc 33.2 g/dL (32-36); Mean Corpuscular Volume 87.4 fL (80-100); Platelet Count 374 K/uL (130-400); RDW Coefficient of Variation 13.8 % (11.5-14.5); RDW Standard Deviation 43.8 fL (36.4-46.3); Red Blood Count 3.65 M/uL (4.7-6.1)
[2020-04-28 06:52] LABS: Albumin Level 3.7 gm/dl (3.4-5.0); BUN Creatinine Ratio 6.8 (10-20); Calcium 8.6 mg/dl (8.5-10.1); Est GFR (African American) 56.1; Est GFR (Non-African American) 48.4; Magnesium 2.5 mg/dl (1.8-2.4); Potassium 3.4 mmol/L (3.5-5.1)
[2020-04-28 06:55] LABS: Albumin Globulin Ratio 1.1 (0.9-2); Bilirubin,Total 0.9 mg/dl (0.2-1); Globulin 3.5 gm/dl (2.5-4.0); Total Protein 7.2 gm/dl (6.4-8.2)
[2020-04-28] MEDS: MAGNESIUM HYDROXIDE SUSP 30 ML UDC PO SCH ×2 (07:44→08:33)
[2020-04-28] MEDS: LIDOCAINE 5% 1 PATCH TD SCH (07:47)
[2020-04-28] MEDS: INSULIN ASPART 100 UNITS/ML 3 ML PEN SC SCH ×2 (08:27→12:17)
[2020-04-28] MEDS: DOCUSATE SODIUM/SENNA 50/8.6MG TAB PO SCH (08:33)
[2020-04-28] MEDS: amLODIPine BESYLATE 5 MG TAB PO SCH (08:33)
[2020-04-28] MEDS ORDERED: POTASSIUM CHLORIDE CRTAB 20 MEQ TABCR PO ONE (08:42)
--- NOTE | 2020-04-28 09:45 | Surgery Progress Note ---
Date of Service April 28, 2020 Assessment & Plan (1) Status post laparoscopic cholecystectomy: POD#5 laparoscopic cholecystectomy Had concern for post operative bleeding requiring pRBC transfusion that has stopped Today Hbg 10.6 (9.3) and vital signs stable He is feeling well, tolerating a diet, and pain controlled Incisions c/d/i without signs of infection Okay for discharge from our standpoint when cleared by medicine Will require follow up with Dr. messina within 1-2 weeks Admission and Anticipated Discharge Date Admission Date: April 21, 2020 Subjective Patient states he is doing well. Tolerating a diet. Denies nausea/vomiting/abdominal pain. Physical Exam Physical Exam: awake/alert Constitutional: no acute distress Gastrointestinal (Abdomen): Inspection/Auscultation: + abdominal surgical incision (c/d/i with dermabond overtop; no signs of infection); abdomen not distended Percussion/Palpation: abdomen soft; abdomen nontender Results & Data ([facility]) Vital Signs (Past 12 Hours) Vital Signs Temp Pulse Resp BP Pulse Ox 04/28/20 08:32 84 133/86 04/28/20 07:00 36.8 C 84 16 130/80 97 04/27/20 22:26 36.7 C 78 20 154/87 H 96 PG Care Time/CCT Total # of Minutes Spent Total Time Spent with Patient: Total time spent is greater than 50% in coordination of care (as documented) at patient's floor/unit and/or counseling patient: Coding Level of Care Code None Diagnoses Status post laparoscopic cholecystectomy Z90.49
--- NOTE | 2020-04-28 11:00 | Discharge Summary ---
Date of Service April 28, 2020 Admission HPI Per Admitting Provider The patient is a 49-year-old male with a past medical history including diabetes mellitus, hypertension, and sciatica who presents with nausea for the past few days, following treatment with steroids and NSAIDs for sciatica. Principal Diagnosis acute cholecystitis, s/p cholecystectomy, acute pancreatitis, acute blood loss anemia Discharge Exam Constitutional WD/WN, vitals as above Eyes PERRL, conjunctivae normal, anicteric sclerae ENMT external ear and nose normal, oropharynx normal Neck trachea midline, no thyromegaly Respiratory normal respiratory effort, lungs clear to auscultation Cardiovascular RRR, no murmur, no edema Gastrointestinal (Abdomen) normal bowel sounds, soft, nontender, no hepatosplenomegaly Musculoskeletal no cyanosis or clubbing, extremities motor strength 5/5 Skin no rashes, warm and dry Neurologic CN's II-XI intact bilaterally Discharge Data Allergies Allergy/AdvReac Type Severity Reaction Status Date / Time No Known Allergies Allergy Verified 04/21/20 20:03 Consultations 04/21/20 21:11 ED Decision to Admit Stat 04/21/20 23:31 Consult General Surgery Routine 04/24/20 05:18 Consult Tile Sorter Routine Procedures Performed Operation Date: 04/23/20 11:35 Actual Procedures p Laparoscopic Cholecystectomy(Not Applicable) - Raad Miller MD, FACS Ordered Studies 04/21/20 18:56 CT abd pelvis wo con Stat 04/22/20 04:15 MR MRCP Urgent Hospital Course (1) Cholecystitis: * Acute cholecystitis/pancreatitis/transaminitis- concerning for gallstone pancreatitis * CT with abnormal appearing GB. * MRCP normal without GB thickening seen on CT * POD #5 s/p lap poncho with Dr. Miller on 04/23/10 * Post-operative acute blood loss anemia likely exacerbated by increased NSAID use [employer] * s/p 2 unit PRBC and blood counts stable * treated with Zosyn (day 5 of therapy). Switch to po Augmentina at discharge * Lipase trended down, resolved * Continue Pepcid IV BID and switched to PPI at d/c * Electrolyte replacement of K and phos (2) Acute blood loss anemia: * Pt had increased post operative abdominal pain and noted to have a 4.5 gm drop in hgb and was transferred to ICU * Got 2 u PRBC and blood counts stabilized, currently 9.3/27.3 from 9.5 but continues on IVF * Encouraged PO intake and will d/c IVF this afternoon * CKD 3 and making good urine * Transferred back to medical floor and remains stable (3) Pancreatitis: * See above * Lipase trended down, resolved. likely 2nd to stone (4) Transaminitis: * secondary to cholecystitis, resolved (5) Renal insufficiency: * Renal insufficiency- seems to have CKD3 * restart lisinopril at discharge * Patient had been taking meloxicam, diclofenac, and ibuprofen prior to admission * Avoid nephrotoxic medications, renally dose medications when able * restart metformin and glimepiride at d/c (6) Hypertension: * restart lisinopril at discharge * Continue to monitor (7) Diabetes mellitus: * restrt glimepiride * restart Metformin * ADA diet. ISS Hypokalemia/Hypophosphatemia * oral and IV replacement DVT Prophylaxis * SCDs * Lovenox SQ * Ambulation encouraged Dispo: d/c to intermediate infornary today, 04/28 Total Time Total Time Spent Total Time Spent (In Minutes): 35 minutes Discharge Plan Discharge Items [facility]position[facility] Reason For Visit: GALLSTONE PANCRATITIS Discharge Diagnosis: laparoscopic cholecystectomy Goals: You have been hospitalized for an urgent problem which required surgery. During your stay at [facility], we have made an effort to correct the problem that brought you to the hospital while keeping you as comfortable as possible. Surgery and medications were used to bring your condition under control and your discharge instructions will include directions for any medications you should take after leaving the hospital. Please make sure to follow the advice of your surgeon regarding follow up with the surgeon and with your primary care provider. Activity: Per Instructions section Activity Comment: light activity for 4 weeks Lifting: No more than 10 pounds Bathing Comment: may shower Exercise/Sports: Wait until after follow-up appointment Exercise Comment: wait 4 weeks Non-emergency contact: Primary Care Provider Call non-emergency contact if: you have any medication questions, your symptoms worsen, your pain is not controlled, your pain is worsening, you have a fever, your temperature is above 101.5, your wound has increased redness, your wound has increased drainage and your wound pain has increased Follow-up/Referrals: Raad Miller MDJABARI [Physician] - Polo TRAVIS [Primary Care Provider] - Diet: Low Fat Leticia Attending Provider Instructions: SPECIAL CARE INSTRUCTIONS: * Cover incisions and change daily for comfort/drainage. * May use ibuprofen for pain as tolerated. * Expect some swelling and bruising. Call your doctor if: * Temperature above 101 degrees * Pain not relieved by pain medicine ordered * There is increased drainage or redness from any incision * You have any unanswered questions or concerns [phone]. FOLLOW UP VISIT: If not already scheduled, please call the office for a follow-up visit. OFFICE PHONE NUMBER: Dr. Miller Office [facility] [employer]ician Provider Instructions: AVOID ALL NSAIDS No Metformin until GFR improved Pending Studies at Discharge: No Stand-Alone Forms: My [facility] [place] [employer] Skilled Items Patient informed of condition?: Yes Discharge Level of Care: Other Communicable Disease: No Discharge Prognosis: Stable Lines: None Urinary Catheter: No Medications and DC Order Prescriptions: Discontinued diclofenac sodium 50 mg Tablet,Delayed Release (Dr/Ec) 50 mg PO TID RF: 0 No Action lisinopril 20 mg Tablet 20 mg PO DAILY RF: 0 aspirin [Aspirin Low-Strength] 81 mg Tablet,Delayed Release (Dr/Ec) 81 mg PO DAILY RF: 0 glimepiride 1 mg Tablet 1 mg PO DAILY RF: 0 nortriptyline 25 mg Capsule 25 mg PO HS RF: 0 carbamazepine 200 mg Tablet 200 mg PO HS RF: 0 metformin 1,000 mg Tablet 1,000 mg PO BID RF: 0 Admission Data Admit Date/Time: 04/21/20 22:31 Attending Provider: Raad Meza Admit Provider: Tariq Dill Primary Care Provider: Polo TRAVIS Other Providers: Tariq Dill ; Raad Miller ; Marc Denton Coding Level of Care Code D/C Day Management >30 mins Diagnoses Cholecystitis K81.9 Acute blood loss anemia D62 Pancreatitis K85.90 Transaminitis R74.01 Renal insufficiency N28.9 Hypertension I10 Diabetes mellitus E11.9
== END 2020-04-28 12:26 | DRG 417 ==
LOC: ED 17:47 → SUATTDRO 22:31 → 3W 22:31 → 1E 04-24 02:22 → 3E 04-25 11:18